=== PATIENT | male | born 1950 | race Caucasian/White ===

== ENCOUNTER 2018-01-12 17:02 | Observation (INO) | payer MEDICARE, SELFPAY ==
[2018-01-12] VITALS (9 sets, daily range): BP systolic 140–166; BP diastolic 70–108; PULSE 69–83; RESP 14–17; TEMP 36.6; O2SAT 96–99; BMI 26.8; BMI 26.0
--- NOTE | 2018-01-12 17:23 | RAD_ITS ---
STUDY: X-RAY CHEST REASON FOR EXAM: Male, 67 years old. Chest pain TECHNIQUE: A single frontal view of the chest was obtained. COMPARISON: January 25, 2015 FINDINGS: The lungs are adequately aerated. There are no focal airspace opacities. There is no demonstrated pleural abnormality. The cardiac silhouette is normal in size. The mediastinum and hilar regions are unremarkable. Normal visualized pulmonary arteries. Normal visualized aortic arch and descending thoracic aorta. There are diffuse degenerative changes of the visualized spine. There are degenerative changes in both shoulders. There is no demonstrated abnormality of the visualized upper abdomen. RAD/Chest 1 View IMPRESSION: No acute cardiopulmonary abnormalities or changes. Electronically Signed: Lyndsey Diop MD at 19:12 EDT Tel Direct: [phone], Service support ,
--- NOTE | 2018-01-12 17:23 | CT_ITS ---
CT Head or Brain W/O Contrast INDICATION: GLOBAL AMNESIA FOR 45 MIN COMPARISON: None TECHNIQUE: Noncontrast axial CT examination of the brain. Radiation dose optimization applied. FINDINGS: The ventricular system is normal in size and symmetric. The cortical sulci, sylvian fissures, and basal cisterns are well seen. The du-white matter junction is distinct. There is no evidence of acute intracranial hemorrhage, mass effect, midline shift, or abnormal extra-axial collection. The calvarium is intact and the visualized paranasal sinuses and mastoid air cells are clear. CT/Brain/Head without Contrast IMPRESSION: No evidence of acute intracranial abnormality by noncontrast CT. at 1845 Reported and signed by: Nayely Tucker MD Electronically Signed: Nayely Tucker MD at 17:44 EDT Tel , Service support ,
--- NOTE | 2018-01-12 17:23 | EKG12_ITS ---
Test Reason : NEURO S/SX Blood Pressure : / mmHG Vent. Rate : 072 BPM Atrial Rate : 072 BPM P-R Int : 172 ms QRS Dur : 100 ms QT Int : 392 ms P-R-T Axes : 013 000 027 degrees QTc Int : 429 ms Normal sinus rhythm Normal ECG Confirmed by TANYA RODRIGUEZ, SUZY ([id number]), multimedia editor JONAS GARCIA ([id number] on 01/15/2018 8:49:53 AM Referred By: JACKIE Confirmed By:SUZY MARTÍNEZ MD
--- NOTE | 2018-01-12 17:25 | ED.VISSUMM ---
- ER Visit Summary Date of Service: 01/12/18 Chief Complaint: Amnesia History of Present Illness: The patient is a 67 M presenting with amnesia. Patient has a history of previous transient global amnesia approximately 4 years ago. He states he had similar symptoms today. This lasted approximately 45 minutes. states that he had repetitive questions. No slurred speech. He states he has had a mild headache today. No numbness or weakness. No visual changes. No balance problems. No other complaints. Physical Examination: Vitals are stable. Patient is afebrile. Alert no acute distress. HEENT exam is unremarkable. Neck is supple. Lungs are clear and equal bilaterally. Heart is regular rate and rhythm. Abdomen is soft nontender nondistended. Extremities are unremarkable. Skin is warm and dry. No focal neurologic deficit. NIH 0 Remainder of exam is unremarkable. Emergency Department Course and Treatment: EKG is sinus rate is 72. CBC, chemistries unremarkable. INR is 1.0. Troponin is negative. CT shows no acute abnormality. Patient does have continuing repetitive questions but this is improved from previous. Will discuss with the hospitalist for admission. Disposition: Admission Impression: Transient global amnesia This note was generated with [employer] dictation software. It may contain incorrect words, spelling, and punctuation that were not noted in review of the chart prior to signing ED Disposition - Plan for ED Patient: Chief Complaint: Neuro S/Sx Referrals: Herrera Talamantes MD [NON-STAFF] -
[2018-01-12 17:41] LABS: Bedside Glucose 100 mg/dL (70-110)
[2018-01-12 17:42] LABS: Absolute Lymphocyte Count 1.84 X10^3/ul (0.83-4.51); Absolute Neutrophil Count 8.4 X10^3/uL (2.0-7.7); Basophil# 0.02 X10^3/uL; Basophil% 0.2 % (0-1); Eosinophils% 0.9 % (0-5); Hematocrit 44.3 % (40-54); Hemoglobin 14.9 g/dl (13.0-16.5); Lymphocyte # 1.84 X10^3/ul (4.0); Lymphocyte % 16.9 % (19-41); Mean Corp Hgb Conc 33.6 g/gl (32-36); Mean Corpuscular Hgb 29.6 pg (27.0-32.0); Mean Corpuscular Volume 88.1 fL (80-94); Mean Platelet Vol. 9.4 fl (6.2-12.0); Monocyte# 0.51 X10^3/uL; Monocyte% 4.7 % (0-10); Neutrophil # 8.42 X10^3/uL (2.7-7.7); Neutrophil % 77.1 % (47-70); Platelet Count 283 K/mm3 (150-450); RBC Distribution Width CV 12.8 % (11.6-14.6); RBC Distribution Width SD 40.9 fl (35.1-43.9); Red Blood Count 5.03 M/mm3 (4.6-6.2); White Blood Count 10.9 K/mm3 (4.4-11.0)
[2018-01-12 17:46] LABS: POSITIVE COUNT NO; POSITIVE DIFFERENTIAL NO; POSITIVE MORPHOLOGY NO
[2018-01-12 17:49] LABS: Partial Thromboplast Time 29.6 Seconds (24.1-36.2); Prothrombin Time (Protime)PT. 12.8 SECONDS (11.7-14.9)
[2018-01-12 18:10] LABS: Anion Gap 7 (5-15); BUN 21 mg/dL (7-18); BUN/Creat Ratio 20.4 RATIO (10-20); Calcium,Total 9.2 mg/dL (8.5-10.1); Chloride 104 mmol/L (98-107); Creatinine, Serum 1.03 mg/dL (0.70-1.30); EST Glomerular Filtration Rate 76 mL/min (>60); Est Glom Filt Rate - Afr Amer 93 mL/min (>60); Estimated Creatinine Clearance 69.59 ml/min; Glucose 100 mg/dL (74-106); Potassium 3.9 mmol/L (3.5-5.1); Sodium Level 139 mmol/L (136-145)
--- NOTE | 2018-01-12 19:09 | PCM.HP.STD ---
Problem List (1) Global amnesia Status: Acute (2) PAF (paroxysmal atrial fibrillation) Status: Chronic (3) Chronic back pain Status: Chronic Qualifiers: Back pain location: back pain in unspecified location Back pain laterality: unspecified Qualified Code(s): M54.9 - Dorsalgia, unspecified; G89.29 - Other chronic pain (4) S/P ablation of atrial fibrillation Status: Chronic (5) HLD (hyperlipidemia) Status: Chronic Qualifiers: Hyperlipidemia type: unspecified Qualified Code(s): E78.5 - Hyperlipidemia, unspecified History of Present Illness Date of Admission: 01/12/18 Chief Complaint: Global amnesia The patient is a 67 y/o M w/ PMHx: PAF s/p ablation x 3, HLD not on regimen, Chronic Back Pain who presents to the [facility] ED on 01/12/18 with onset at ~ 1:45 pm global amnesia which per history occurred ~ 6-8 years prior which lasted 24 hours with unremarkable evaluation per Neurology (Dr. Soria) at that time Dx Global Amnesia, noted to be more severe x ~ 45 minutes with serial repeat questioning and concern per patient with improvement upon ED presentation, but ongoing repeat questions but now awareness of this and request if he has already asked these questions. He also notes 6-8 month history of occasional L upper focal chest discomfort, reproducible, worse with palpation, notes sensation like a pulled muscle. He additionally notes mild L sided lateral headache, very mild, dull and resolved without photophobia or phonophobia noted. In the ED work-up included T 97.8, heart rate 72, BP initially 156/96, respiratory rate 17, 99% on room air--> follow-up BP 140/78, CBC with WBC 10.9, hemoglobin 14.9, platelet 283 with left shift, unremarkable coags, BMP with BUN/creatinine 21/1.03, troponin unremarkable, CT head with no acute findings, chest x-ray without acute findings. Past Medical History Past Medical History (Chronic Problems): Chronic Problems PAF (paroxysmal atrial fibrillation) (Chronic) Chronic back pain (Chronic) S/P ablation of atrial fibrillation (Chronic) HLD (hyperlipidemia) (Chronic) Allergies codeine Adverse Reaction (Verified 01/12/18 17:10) Other SHRIMP Adverse Reaction (Uncoded 01/12/18 17:10) Swelling Home Medications: Ambulatory Orders Medication Instructions Recorded Aspirin E.C. [Ecotrin] 81 mg PO DAILY@0800 06/15/14 Vits A,C,E/Lutein/Minerals 1 each PO DAILY 06/15/14 [Ocuvite with Lutein Tablet] Cyanocobalamin (Vitamin B-12) 01/12/18 [Vitamin B12] Multivitamin [Daily Multiple 1 tablet PO DAILY 01/12/18 Vitamin] Surgical History: - - Right lower extremity trauma with several surgeries and hardware, cardiac ablation ?3, tonsillectomy, right eye surgery with lower zygomatic arch plate, appendectomy, umbilical hernia repair. Psychiatric History: No pertinent psych hx Lives: Spouse/ Significant Other Smoking Status: Former smoker - Patient smoked for approximately 4 years and quit when he was 21 years old. 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 Drugs: None - *Family History Maternal History Items: - - Patient notes a maternal family history of heart disease. He notes a maternal grandfather and grandmother with history of heart disease, diabetes and cancer. Paternal History Items: Unknown Review of Systems Constitutional: Denies: Chills, Fever, Weight Change HEENT: Reports: Head Aches. Denies: Sinus Congestion, Sinus Drainage Cardiovascular: Reports: Chest Pain - Musculoskeletal.. Denies: Palpitations Respiratory: Denies: Cough, Shortness of breath at rest, Sputum production Gastrointestinal: Denies: Abdominal Pain, Nausea, Vomiting Genitourinary: Denies: Dysuria Musculoskeletal: Reports: Leg Pain. Denies: Joint Pain, Joint Tenderness Skin: Denies: Rash, Wounds Neurological: Reports: Confusion. Denies: Focal weakness, Numbness, Tingling Psychiatric: Denies: Anxiety, Depression, Homicidal Ideations, Suicidal Ideations Hematologic/ Lymphatic: Denies: Easy Bruising, Easy Bleeding VTE Information - Inpt Only VTE Present on Admission: No VTE Mechan Device Prophylaxis: SCD's VTE Pharm Prophylaxis ordered?: Yes Patient Problems: Active and Suspected Problems Global amnesia (Acute) Subjective: Seated upright in the emergency room bed, no acute distress, spouse and patient feel as though his amnesia is nearly resolved. Objective: Physical Examination: General: awake, alert, oriented x 3 including person, place, year, month and cooperative, seated upright in the ED bed in no apparent distress. Skin: normal color, turgor, no icterus, cyanosis. HEENT: AT/NC, EOMI, PERRLA, MMM, no carotid bruits or JVD noted. Lungs: CTA bilaterally, moderate effort, mild decrease BL bases, no rales, ronchi or wheezing. Heart: Regular rate and rhythm; no gallop, rub audible, reproducible focal region left upper chest discomfort. Abdomen: soft, NTTP, ND, normal BS, no HSM. Extremities: no cyanosis, clubbing, or edema. Neurological: patient awake, alert, oriented as noted; cognitive function per patient and spouse near baseline intact; pupils equally reactive to light and accomodation; cranial nerves II-XII grossly normal, moving all 4 extremities, no focal deficits, strength preserved, sensation intact, negative Babinski, finger to nose/heel to rosa appropriate/. Psychiatric: affect appears normal, no acute evidence of depressive or anxiety feelings. - Physical Exam Vital Signs Temp Pulse Resp BP Pulse Ox 97.8 F 80 14 145/70 H 98 01/12/18 17:03 01/12/18 17:30 01/12/18 17:30 01/12/18 17:30 01/12/18 17:30 Oxygen Delivery Method Room Air Weight: 181 lb 10.574 oz Body Mass Index (BMI) 26.8 Finger Stick Blood Glucose 100 Laboratory Tests Past 24 Hrs 01/12/18 01/12/18 01/12/18 17:30 17:30 17:30 WBC 10.9 RBC 5.03 Hgb 14.9 Hct 44.3 MCV 88.1 MCH 29.6 MCHC 33.6 RDW 12.8 RDW Differential 40.9 Plt Count 283 MPV 9.4 Immature Gran % (Auto) 0.200 Neut % (Auto) 77.1 H Lymph % (Auto) 16.9 L [place] % (Auto) 4.7 Eos % (Auto) 0.9 Baso % (Auto) 0.2 Absolute Neuts (auto) 8.4 H Absolute Lymphs (auto) 1.84 Total Counted Not Reportable PT 12.8 INR 1.0 APTT 29.6 Sodium 139 Potassium 3.9 Chloride 104 Carbon Dioxide 28.0 Anion Gap 7 BUN 21 H Creatinine 1.03 Estim Creat Clear Calc 69.59 Est GFR (MDRD) Af Amer 93 Est GFR (MDRD) Non-Af 76 BUN/Creatinine Ratio 20.4 H Glucose 100 Calcium 9.2 Troponin I < 0.02 POC Glucose 01/12/18 17:36 POC Glucose 100 Assessment/Plan Active and Suspected Problems Global amnesia (Acute) The patient is a 67 y/o M w/ PMHx: PAF s/p ablation x 3, HLD, Chronic Back Pain who presents to the [facility] ED on 01/12/18 with onset at ~ 1:45 pm global amnesia which per history occurred ~ 6-8 years prior, noted to be more severe x ~ 45 minutes with serial repeat questioning and concern per patient with improvement upon ED presentation, but ongoing repeat questions but now awareness of this and request if he has already asked these questions. (1) Transient Global Amnesia concerning for TIA/CVA: In the ED work-up included CBC w/ unremarkable, BMP w/ unremarkable, CT Head w/ no acute findings, CXR w/ no acute findings. Will admit to PCU, will obtain MRI Brain, MRA Head and Neck, ECHO, PT/OT/Speech/Nutrition evaluation per protocol. Will consult Neurology for evaluation. Will allow permissive HTN, maintain on asa with addition of plavix, add high dose statin w/ AM FLP, fall precautions. UA pending. Mag pending. (2) Paroxsymal atrial fibrillation s/p ablation: EKG in ED SR. patient status post cardiac ablation ?3, successful on the third try, no recurrent atrial fibrillation times approximately 10 years. Will maintain on telemetry, obtain cardiac enzyme serial set, obtain magnesium level, obtain ECHO, obtain TSH level as noted above. Given s/p ablation and maintained in sinus rhythm following w/ unclear CVA status will defer anticoagulation. (3) Elevated blood pressure without history of hypertension: Permissive. If appropriate add agent once appropriate timeline or MRI negative. Given history, running above goal. (4) Hyperlipidemia: Not on agent, add high dose statin, FLP in AM. (5) Chronic Back Pain: Fall precautions, position changes, PT/OT as noted, PRN tylenol. (6) Musculoskeletal L Focal Chest Pain: As noted, reproducible discomfort, focal, notes ongoing for several months, maintain on telemetry as noted, EKG SR without acute findings, trop normal, trend, mag pending, FLP pending. (7) DVT Prophylaxis: SCDs, lovenox. Code Visit OBSV E&M: 37227 Initial observation care L3
--- NOTE | 2018-01-12 19:22 | HP.PCM_ITS ---
Problem List (1) Global amnesia Status: Acute (2) PAF (paroxysmal atrial fibrillation) Status: Chronic (3) Chronic back pain Status: Chronic Qualifiers: Back pain location: back pain in unspecified location Back pain laterality : unspecified Qualified Code(s): M54.9 - Dorsalgia, unspecified; G89.29 - Other chronic pain (4) S/P ablation of atrial fibrillation Status: Chronic (5) HLD (hyperlipidemia) Status: Chronic Qualifiers: Hyperlipidemia type: unspecified Qualified Code(s): E78.5 - Hyperlipidemia , unspecified History of Present Illness Date of Admission: 01/12/18 Chief Complaint: Global amnesia The patient is a 67 y/o M w/ PMHx: PAF s/p ablation x 3, HLD not on regimen, Chronic Back Pain who presents to the [facility] ED on 01/12/18 with onset at ~ 1:45 pm global amnesia which per history occurred ~ 6-8 years prior which lasted 24 hours with unremarkable evaluation per Neurology (Dr. Soria) at that time Dx Global Amnesia, noted to be more severe x ~ 45 minutes with serial repeat questioning and concern per patient with improvement upon ED presentation, but ongoing repeat questions but now awareness of this and request if he has already asked these questions. He also notes 6-8 month history of occasional L upper focal chest discomfort, reproducible, worse with palpation, notes sensation like a pulled muscle. He additionally notes mild L sided lateral headache, very mild, dull and resolved without photophobia or phonophobia noted. In the ED work-up included T 97.8, heart rate 72, BP initially 156/96, respiratory rate 17, 99% on room air--> follow-up BP 140/78, CBC with WBC 10.9, hemoglobin 14.9, platelet 283 with left shift, unremarkable coags, BMP with BUN/ creatinine 21/1.03, troponin unremarkable, CT head with no acute findings, chest x-ray without acute findings. Past Medical History Past Medical History (Chronic Problems): Chronic Problems PAF (paroxysmal atrial fibrillation) (Chronic) Chronic back pain (Chronic) S/P ablation of atrial fibrillation (Chronic) HLD (hyperlipidemia) (Chronic) Allergies codeine Adverse Reaction (Verified 01/12/18 17:10) Other SHRIMP Adverse Reaction (Uncoded 01/12/18 17:10) Swelling Home Medications: Ambulatory Orders Medication Instructions Recorded Aspirin E.C. [Ecotrin] 81 mg PO DAILY@0800 06/15/14 Vits A,C,E/Lutein/Minerals 1 each PO DAILY 06/15/14 [Ocuvite with Lutein Tablet] Cyanocobalamin (Vitamin B-12) 01/12/18 [Vitamin B12] Multivitamin [Daily Multiple 1 tablet PO DAILY 01/12/18 Vitamin] Surgical History: - - Right lower extremity trauma with several surgeries and hardware, cardiac ablation ?3, tonsillectomy, right eye surgery with lower zygomatic arch plate, appendectomy, umbilical hernia repair. Psychiatric History: No pertinent psych hx Lives: Spouse/ Significant Other Smoking Status: Former smoker - Patient smoked for approximately 4 years and quit when he was 21 years old. 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 Drugs: None - *Family History Maternal History Items: - - Patient notes a maternal family history of heart disease. He notes a maternal grandfather and grandmother with history of heart disease, diabetes and cancer. Paternal History Items: Unknown Review of Systems Constitutional: Denies: Chills, Fever, Weight Change HEENT: Reports: Head Aches. Denies: Sinus Congestion, Sinus Drainage Cardiovascular: Reports: Chest Pain - Musculoskeletal.. Denies: Palpitations Respiratory: Denies: Cough, Shortness of breath at rest, Sputum production Gastrointestinal: Denies: Abdominal Pain, Nausea, Vomiting Genitourinary: Denies: Dysuria Musculoskeletal: Reports: Leg Pain. Denies: Joint Pain, Joint Tenderness Skin: Denies: Rash, Wounds Neurological: Reports: Confusion. Denies: Focal weakness, Numbness, Tingling Psychiatric: Denies: Anxiety, Depression, Homicidal Ideations, Suicidal Ideations Hematologic/ Lymphatic: Denies: Easy Bruising, Easy Bleeding VTE Information - Inpt Only VTE Present on Admission: No VTE Mechan Device Prophylaxis: SCD's VTE Pharm Prophylaxis ordered?: Yes Patient Problems: Active and Suspected Problems Global amnesia (Acute) Subjective: Seated upright in the emergency room bed, no acute distress, spouse and patient feel as though his amnesia is nearly resolved. Objective: Physical Examination: General: awake, alert, oriented x 3 including person, place, year, month and cooperative, seated upright in the ED bed in no apparent distress. Skin: normal color, turgor, no icterus, cyanosis. HEENT: AT/NC, EOMI, PERRLA, MMM, no carotid bruits or JVD noted. Lungs: CTA bilaterally, moderate effort, mild decrease BL bases, no rales, ronchi or wheezing. Heart: Regular rate and rhythm; no gallop, rub audible, reproducible focal region left upper chest discomfort. Abdomen: soft, NTTP, ND, normal BS, no HSM. Extremities: no cyanosis, clubbing, or edema. Neurological: patient awake, alert, oriented as noted; cognitive function per patient and spouse near baseline intact; pupils equally reactive to light and accomodation; cranial nerves II-XII grossly normal, moving all 4 extremities, no focal deficits, strength preserved, sensation intact, negative Babinski, finger to nose/heel to rosa appropriate/. Psychiatric: affect appears normal, no acute evidence of depressive or anxiety feelings. - Physical Exam Vital Signs Temp Pulse Resp BP Pulse Ox 97.8 F 80 14 145/70 H 98 01/12/18 17:03 01/12/18 17:30 01/12/18 17:30 01/12/18 17:30 01/12/18 17:30 Oxygen Delivery Method Room Air Weight: 181 lb 10.574 oz Body Mass Index (BMI) 26.8 Finger Stick Blood Glucose 100 Laboratory Tests Past 24 Hrs 01/12/18 01/12/18 01/12/18 17:30 17:30 17:30 WBC 10.9 RBC 5.03 Hgb 14.9 Hct 44.3 MCV 88.1 MCH 29.6 MCHC 33.6 RDW 12.8 RDW Differential 40.9 Plt Count 283 MPV 9.4 Immature Gran % (Auto) 0.200 Neut % (Auto) 77.1 H Lymph % (Auto) 16.9 L [place] % (Auto) 4.7 Eos % (Auto) 0.9 Baso % (Auto) 0.2 Absolute Neuts (auto) 8.4 H Absolute Lymphs (auto) 1.84 Total Counted Not Reportable PT 12.8 INR 1.0 APTT 29.6 Sodium 139 Potassium 3.9 Chloride 104 Carbon Dioxide 28.0 Anion Gap 7 BUN 21 H Creatinine 1.03 Estim Creat Clear Calc 69.59 Est GFR (MDRD) Af Amer 93 Est GFR (MDRD) Non-Af 76 BUN/Creatinine Ratio 20.4 H Glucose 100 Calcium 9.2 Troponin I < 0.02 POC Glucose 01/12/18 17:36 POC Glucose 100 Assessment/Plan Active and Suspected Problems Global amnesia (Acute) The patient is a 67 y/o M w/ PMHx: PAF s/p ablation x 3, HLD, Chronic Back Pain who presents to the [facility] ED on 01/12/18 with onset at ~ 1:45 pm global amnesia which per history occurred ~ 6-8 years prior, noted to be more severe x ~ 45 minutes with serial repeat questioning and concern per patient with improvement upon ED presentation, but ongoing repeat questions but now awareness of this and request if he has already asked these questions. (1) Transient Global Amnesia concerning for TIA/CVA: In the ED work-up included CBC w/ unremarkable, BMP w/ unremarkable, CT Head w/ no acute findings, CXR w/ no acute findings. Will admit to PCU, will obtain MRI Brain, MRA Head and Neck, ECHO, PT/OT/Speech/Nutrition evaluation per protocol. Will consult Neurology for evaluation. Will allow permissive HTN, maintain on asa with addition of plavix, add high dose statin w/ AM FLP, fall precautions. UA pending. Mag pending. (2) Paroxsymal atrial fibrillation s/p ablation: EKG in ED SR. patient status post cardiac ablation ?3, successful on the third try, no recurrent atrial fibrillation times approximately 10 years. Will maintain on telemetry, obtain cardiac enzyme serial set, obtain magnesium level, obtain ECHO, obtain TSH level as noted above. Given s/p ablation and maintained in sinus rhythm following w/ unclear CVA status will defer anticoagulation. (3) Elevated blood pressure without history of hypertension: Permissive. If appropriate add agent once appropriate timeline or MRI negative. Given history, running above goal. (4) Hyperlipidemia: Not on agent, add high dose statin, FLP in AM. (5) Chronic Back Pain: Fall precautions, position changes, PT/OT as noted, PRN tylenol. (6) Musculoskeletal L Focal Chest Pain: As noted, reproducible discomfort, focal , notes ongoing for several months, maintain on telemetry as noted, EKG SR without acute findings, trop normal, trend, mag pending, FLP pending. (7) DVT Prophylaxis: SCDs, lovenox. Code Visit OBSV E&M: 99972 Initial observation care L3
[2018-01-12] MEDS: 0.9% NaCl Peripheral Flush Adult/Peds IV (20:49)
[2018-01-12] MEDS: 0.9% Normal Saline 1,000 ML 100 ML IV (20:49)
[2018-01-12 20:59] LABS: Magnesium 2.5 mg/dL (1.6-2.6); Thyroid Stim Hormone (TSH) 1.27 uIU/mL (0.358-3.74)
[2018-01-12] MEDS: Enoxaparin 40 MG/0.4 ML Syringe SC (21:57)
[2018-01-12] MEDS: Atorvastatin Calcium 80 MG Tablet PO (21:57)
[2018-01-12 22:13] LABS: Bacteria 0 SEEN /hpf (None Seen); Mucous, Urine 0 SEEN /hpf (<or=2+); Squamous Epithelial Cells - UA 0 SEEN /hpf (0-5)
[2018-01-12 22:16] LABS: Color, Urine Yellow (Yellow); Glucose, Dipstick Normal (Normal); Ketone-Dipstick Negative (Negative); Leukocyte Esterase-Dipstick Negative /ul (Negative); Nitrite-Dipstick Negative (Negative); Occult Blood-Urine Negative /ul (Negative); Protein-Dipstick Negative (Negative); Urine Bilirubin Dipstick Negative (Negative); Urine Clarity Cloudy (Clear); Urine Urobilinogen Normal (Normal)
[2018-01-12 22:29] LABS: Amorphous Sediment 2+
[2018-01-12 22:30] LABS: Red Blood Cells-Urine 0-5 SEEN /hpf (0-5); White Blood Cells 0-5 SEEN /hpf (0-5)
[2018-01-13] VITALS (9 sets, daily range): BP systolic 87–120; BP diastolic 57–75; PULSE 60–84; RESP 15–20; TEMP 36.4–37.1; O2SAT 96–97; BMI 26.0
[2018-01-13 02:18] LABS: Hematocrit 40.6 % (40-54); Hemoglobin 13.9 g/dl (13.0-16.5); Mean Corp Hgb Conc 34.2 g/gl (32-36); Mean Corpuscular Hgb 30.2 pg (27.0-32.0); Mean Corpuscular Volume 88.3 fL (80-94); Mean Platelet Vol. 9.5 fl (6.2-12.0); Platelet Count 307 K/mm3 (150-450); RBC Distribution Width CV 12.8 % (11.6-14.6); RBC Distribution Width SD 40.9 fl (35.1-43.9); White Blood Count 8.2 K/mm3 (4.4-11.0)
[2018-01-13 02:19] LABS: Scan Indicated on CBC? Y/N NO
[2018-01-13 04:22] LABS: Anion Gap 10 (5-15); BUN 22 mg/dL (7-18); Calcium,Total 8.5 mg/dL (8.5-10.1); Chloride 104 mmol/L (98-107); Cholesterol 213 mg/dL (200); Creatinine, Serum 1.05 mg/dL (0.70-1.30); EST Glomerular Filtration Rate 75 mL/min (>60); Est Glom Filt Rate - Afr Amer 91 mL/min (>60); Estimated Creatinine Clearance 68.27 ml/min; Glucose 127 mg/dL (74-106); High Density Lipoprotein 43 mg/dL; Potassium 3.7 mmol/L (3.5-5.1); Sodium Level 141 mmol/L (136-145); Triglycerides 535 mg/dL
[2018-01-13] MEDS: 0.9% Normal Saline 1,000 ML 100 ML IV (06:15)
[2018-01-13] MEDS: Aspirin 81 MG TAB.CHEW PO (08:04)
[2018-01-13] MEDS: Clopidogrel Bisulfate 75 MG Tablet PO (08:04)
[2018-01-13] MEDS: Enoxaparin 40 MG/0.4 ML Syringe SC (08:04)
--- NOTE | 2018-01-13 10:38 | MRI_ITS ---
STUDY: MRI BRAIN WITHOUT CONTRAST REASON FOR EXAM: Male, 67 years old. Global amnesia. Now resolved TECHNIQUE: Standardized multiplanar fat and water weighted pulse sequences were obtained. COMPARISON: None. FINDINGS: The pituitary and pineal regions are normal. The corpus callosum and brainstem are normal The 7th and 8th nerve complexes are normal. Both cerebellopontine angles are clear. The cerebellar vermis and lobes are normal. The ventricles, basal cisterns and cortical sulci are normal with no midline shift and no intra or extra-axial hemorrhage or tumor mass. There is no acute infarction. The calvarium is intact. There are no skull swelling. The vessels at the base of the brain are normal. The orbits, paranasal sinuses and mastoid air cells are normal.. MRI/Brain without Contrast IMPRESSION: No acute findings in the brain. No intra or extra-axial tumor mass. Electronically Signed: Delgado Matias, at 12:10 EDT Tel , Service support ,
--- NOTE | 2018-01-13 10:38 | MRI_ITS ---
STUDY: MRA OF THE HEAD WITHOUT CONTRAST REASON FOR EXAM: Male, 67 years old. CVA. Global amnesia TECHNIQUE: 3-D [id number] (TOF) imaging was performed with MIPs. The study was performed unenhanced. COMPARISON: None. FINDINGS: Normal bilateral petrous carotid arteries. Normal right cavernous carotid artery with a normal supraclinoid bifurcation. Normal left cavernous carotid artery with a normal supraclinoid bifurcation. Normal right A1 segments of the anterior cerebral artery. Normal left A1 segments of the anterior cerebral artery. Normal intact anterior communicating artery (ACOM). Normal bilateral A2 segments of the anterior cerebral arteries. Normal right M1 and M2 segments of the middle cerebral arteries, with a normal M1 bifurcation. Normal left M1 and M2 segments of the middle cerebral arteries, with a normal M1 bifurcation. Normal right posterior communicating artery (PCOM). Normal left posterior communicating artery (PCOM). Normal bilateral vertebral arteries. Normal basilar artery with a normal basilar bifurcation. The visualized bilateral superior cerebellar (SCA) arteries are normal. Normal bilateral P1, P2 and visualized P3 segments of the posterior cerebral arteries. There is no demonstrated aneurysm of the [place]. There is no major vessel occlusion or hemodynamically significant stenosis. There is no demonstrated abnormality of the visualized brain. MRI/MRA Head ONLY without Contrast IMPRESSION: Normal MRA of the head Electronically Signed: Delgado Matias, at 12:23 EDT Tel , Service support ,
--- NOTE | 2018-01-13 10:38 | MRI_ITS ---
STUDY: MRA NECK WITHOUT CONTRAST REASON FOR EXAM: Male, 67 years old. CVA. Global amnesia TECHNIQUE: Source images were obtained, MIPs were performed. The study was performed unenhanced. COMPARISON: None. FINDINGS: RIGHT CAROTID ARTERIES: Normal right common carotid artery (CCA). About a 50% narrowing involving the right carotid bulb Normal origin of the right internal carotid (ICA) artery without a hemodynamically significant stenosis. Normal visualized cervical portion of the right internal carotid artery. Normal origin of the right external carotid artery (ECA). LEFT CAROTID ARTERIES: Normal left common carotid artery (CCA). There is a large plaque buildup in the left carotid bulb with about a 60-70% narrowing. the rest of the left internal carotid artery is normal.. . Normal origin of the left external carotid artery (ECA). VERTEBRAL ARTERIES: Normal antegrade flow within the bilateral vertebral artery without a hemodynamically significant stenosis. MRI/MRA Neck without Contrast IMPRESSION: About a 50% narrowing involving the right carotid bulb. A 60-70% narrowing of the left carotid bulb. Electronically Signed: Delgado Matias, at 12:22 EDT Tel , Service support ,
--- NOTE | 2018-01-13 13:43 | PCM.CONS.GEN ---
Problem List (1) Transient global amnesia Status: Acute Reason for Consult Date of Consultation: 01/13/18 Reason for Consultation: TGA History of Present Illness: The patient is a 67 year old CM with PMH HLD, Paroxysmal Afib s/p ablation (not on [id number] VASc score of 1), H/O TGA about 10 yrs ago admitted with amnesia. Per patient he was in the bathroom yesterday (01/12/18), after shower he forgot what he was doing, was not acting right, per it took about 30 mins or so for him to come back to normal, was repeating himself, but there was no witnessed seizures, tongue bite or urinary incontinence. Per patient he usually has low BP, but on admission yesterday had high BP with SBPs in the 150-160s. MRI brain done on admission was reported normal and MRA head/neck reported to show 50% stenosis of right ICA and 60-70% stenosis of left ICA. Per patient he takes ASA daily, denies any falls, does not use cane or walker to ambulate, does drive and does not need any assistance for his ADLs. He denies any ELLIOTT, visual disturbances, sensory loss or new onset focal motor weakness. [] Past Medical History Past Medical History (Chronic Problems): Chronic Problems PAF (paroxysmal atrial fibrillation) (Chronic) Chronic back pain (Chronic) S/P ablation of atrial fibrillation (Chronic) HLD (hyperlipidemia) (Chronic) Allergies codeine Adverse Reaction (Verified 01/12/18 17:10) Other SHRIMP Adverse Reaction (Uncoded 01/12/18 17:10) Swelling Home Medications: Ambulatory Orders Medication Instructions Recorded Aspirin E.C. [Ecotrin] 81 mg PO DAILY@0800 06/15/14 Vits A,C,E/Lutein/Minerals 1 each PO DAILY 06/15/14 [Ocuvite with Lutein Tablet] Cyanocobalamin (Vitamin B-12) 01/12/18 [Vitamin B12] Multivitamin [Daily Multiple 1 tablet PO DAILY 01/12/18 Vitamin] Surgical History: - - Right lower extremity trauma with several surgeries and hardware, cardiac ablation ?3, tonsillectomy, right eye surgery with lower zygomatic arch plate, appendectomy, umbilical hernia repair. 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 Drugs: None - *Family History Maternal History Items: - - Patient notes a maternal family history of heart disease. He notes a maternal grandfather and grandmother with history of heart disease, diabetes and cancer. Paternal History Items: Unknown Review of Systems Constitutional: Reports: - - complete ROS negative except as documented in HPI Patient Problems: Active and Suspected Problems Global amnesia (Acute) Transient global amnesia (Acute) - Physical Exam General: Alert HEENT: Atraumatic, Normocephalic Neck: Supple Lungs: Clear to auscultation Cardiovascular: Normal S1, Normal S2 Abdomen: Bowel Sounds Present Extremities: No cyanosis Skin: No rashes Musculoskeletal: No Tenderness to Palpation of Joints or Extremities Neurological: - - consious, alert, CN 2-12 grossly intact, Power 5/5 all 4 extremities, no sensory loss, no cerebellar signs, gait deferred, Reflexes + B/L B/S/T/K/A Psych/Mental Status: Normal Affect Vital Signs Temp Pulse Resp BP Pulse Ox 98.7 F 60 15 103/66 96 01/13/18 10:00 01/13/18 11:35 01/13/18 10:00 01/13/18 10:00 01/13/18 10:00 Oxygen Delivery Method Room Air Weight: 80 kg Body Mass Index (BMI) 26.0 Intake and Output for Last 24 Hours 01/11/18 01/12/18 01/13/18 23:59 23:59 23:59 Intake Total 2020 Balance 2020 Laboratory Tests Past 24 Hrs 01/12/18 01/12/18 01/13/18 21:40 21:50 02:03 WBC RBC Hgb Hct MCV MCH MCHC RDW RDW Differential Plt Count MPV Sodium 141 Potassium 3.7 Chloride 104 Carbon Dioxide 27.0 Anion Gap 10 BUN 22 H Creatinine 1.05 Estim Creat Clear Calc 68.27 Est GFR (MDRD) Af Amer 91 Est GFR (MDRD) Non-Af 75 BUN/Creatinine Ratio 21.0 H Glucose 127 H Calcium 8.5 Troponin I < 0.02 Triglycerides 535 H Cholesterol 213 H LDL Cholesterol TNP VLDL Cholesterol TNP HDL Cholesterol 43 Urine Color Yellow Urine Clarity Cloudy Urine pH 7.0 Ur Specific [place] 1.010 Urine Protein Negative Urine Glucose (UA) Normal Urine Ketones Negative Urine Occult Blood Negative Urine Nitrite Negative Urine Bilirubin Negative Urine Urobilinogen Normal Ur Leukocyte Esterase Negative Urine RBC 0-5 SEEN Urine WBC 0-5 SEEN Ur Squamous Epith Cells 0 SEEN Amorphous Sediment 2+ Urine Bacteria 0 SEEN Urine Mucus 0 SEEN 01/13/18 01/13/18 01/13/18 02:03 02:03 07:36 WBC 8.2 RBC 4.60 Hgb 13.9 Hct 40.6 MCV 88.3 MCH 30.2 MCHC 34.2 RDW 12.8 RDW Differential 40.9 Plt Count 307 MPV 9.5 Sodium Potassium Chloride Carbon Dioxide Anion Gap BUN Creatinine Estim Creat Clear Calc Est GFR (MDRD) Af Amer Est GFR (MDRD) Non-Af BUN/Creatinine Ratio Glucose Calcium Troponin I < 0.02 < 0.02 Triglycerides Cholesterol LDL Cholesterol VLDL Cholesterol HDL Cholesterol Urine Color Urine Clarity Urine pH Ur Specific [place] Urine Protein Urine Glucose (UA) Urine Ketones Urine Occult Blood Urine Nitrite Urine Bilirubin Urine Urobilinogen Ur Leukocyte Esterase Urine RBC Urine WBC Ur Squamous Epith Cells Amorphous Sediment Urine Bacteria Urine Mucus Assessment/Plan Active and Suspected Problems Global amnesia (Acute) Transient global amnesia (Acute) The patient is a 67 year old CM with PMH HLD, Paroxysmal Afib s/p ablation (not on [id number] VASc score of 1), H/O TGA about 10 yrs ago admitted with amnesia. Per patient he was in the bathroom yesterday (01/12/18), after shower he forgot what he was doing, was not acting right, per it took about 30 mins or so for him to come back to normal, was repeating himself, but there was no witnessed seizures, tongue bite or urinary incontinence. Per patient he usually has low BP, but on admission yesterday had high BP with SBPs in the 150-160s. MRI brain done on admission was reported normal and MRA head/neck reported to show 50% stenosis of right ICA and 60-70% stenosis of left ICA. Per patient he takes ASA daily, denies any falls, does not use cane or walker to ambulate, does drive and does not need any assistance for his ADLs. Impression Likely TGA Plan -MRI brain and MRA head/neck reviewed -On ASA 81 mg PO once daily -Can change Lipitor to 40 mg PO q hs -Recommend EEG -GI/DVT prophylaxis -F/U with Neurology as outpatient in 4 weeks -Fall precautions -Please call with questions if any -Thank you for allowing us to participate in patient's care and management I spent 60 minutes taking history, doing physical examination, reviewing medical records, coordinating care and counseling the patient. Code Visit Inpatient E&M: 16035 Init Hosp L3
--- NOTE | 2018-01-13 13:53 | CON.PCM_ITS ---
Problem List (1) Transient global amnesia Status: Acute Reason for Consult Date of Consultation: 01/13/18 Reason for Consultation: TGA History of Present Illness: The patient is a 67 year old CM with PMH HLD, Paroxysmal Afib s/p ablation (not on [id number] VASc score of 1), H/O TGA about 10 yrs ago admitted with amnesia. Per patient he was in the bathroom yesterday (01/12/18), after shower he forgot what he was doing, was not acting right, per it took about 30 mins or so for him to come back to normal, was repeating himself, but there was no witnessed seizures, tongue bite or urinary incontinence. Per patient he usually has low BP, but on admission yesterday had high BP with SBPs in the 150-160s. MRI brain done on admission was reported normal and MRA head/neck reported to show 50% stenosis of right ICA and 60-70% stenosis of left ICA. Per patient he takes ASA daily, denies any falls, does not use cane or walker to ambulate, does drive and does not need any assistance for his ADLs. He denies any ELLIOTT, visual disturbances, sensory loss or new onset focal motor weakness. [] Past Medical History Past Medical History (Chronic Problems): Chronic Problems PAF (paroxysmal atrial fibrillation) (Chronic) Chronic back pain (Chronic) S/P ablation of atrial fibrillation (Chronic) HLD (hyperlipidemia) (Chronic) Allergies codeine Adverse Reaction (Verified 01/12/18 17:10) Other SHRIMP Adverse Reaction (Uncoded 01/12/18 17:10) Swelling Home Medications: Ambulatory Orders Medication Instructions Recorded Aspirin E.C. [Ecotrin] 81 mg PO DAILY@0800 06/15/14 Vits A,C,E/Lutein/Minerals 1 each PO DAILY 06/15/14 [Ocuvite with Lutein Tablet] Cyanocobalamin (Vitamin B-12) 01/12/18 [Vitamin B12] Multivitamin [Daily Multiple 1 tablet PO DAILY 01/12/18 Vitamin] Surgical History: - - Right lower extremity trauma with several surgeries and hardware, cardiac ablation ?3, tonsillectomy, right eye surgery with lower zygomatic arch plate, appendectomy, umbilical hernia repair. 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 Drugs: None - *Family History Maternal History Items: - - Patient notes a maternal family history of heart disease. He notes a maternal grandfather and grandmother with history of heart disease, diabetes and cancer. Paternal History Items: Unknown Review of Systems Constitutional: Reports: - - complete ROS negative except as documented in HPI Patient Problems: Active and Suspected Problems Global amnesia (Acute) Transient global amnesia (Acute) - Physical Exam General: Alert HEENT: Atraumatic, Normocephalic Neck: Supple Lungs: Clear to auscultation Cardiovascular: Normal S1, Normal S2 Abdomen: Bowel Sounds Present Extremities: No cyanosis Skin: No rashes Musculoskeletal: No Tenderness to Palpation of Joints or Extremities Neurological: - - consious, alert, CN 2-12 grossly intact, Power 5/5 all 4 extremities, no sensory loss, no cerebellar signs, gait deferred, Reflexes + B/ L B/S/T/K/A Psych/Mental Status: Normal Affect Vital Signs Temp Pulse Resp BP Pulse Ox 98.7 F 60 15 103/66 96 01/13/18 10:00 01/13/18 11:35 01/13/18 10:00 01/13/18 10:00 01/13/18 10:00 Oxygen Delivery Method Room Air Weight: 80 kg Body Mass Index (BMI) 26.0 Intake and Output for Last 24 Hours 01/11/18 01/12/18 01/13/18 23:59 23:59 23:59 Intake Total 2020 Balance 2020 Laboratory Tests Past 24 Hrs 01/12/18 01/12/18 01/13/18 21:40 21:50 02:03 WBC RBC Hgb Hct MCV MCH MCHC RDW RDW Differential Plt Count MPV Sodium 141 Potassium 3.7 Chloride 104 Carbon Dioxide 27.0 Anion Gap 10 BUN 22 H Creatinine 1.05 Estim Creat Clear Calc 68.27 Est GFR (MDRD) Af Amer 91 Est GFR (MDRD) Non-Af 75 BUN/Creatinine Ratio 21.0 H Glucose 127 H Calcium 8.5 Troponin I < 0.02 Triglycerides 535 H Cholesterol 213 H LDL Cholesterol TNP VLDL Cholesterol TNP HDL Cholesterol 43 Urine Color Yellow Urine Clarity Cloudy Urine pH 7.0 Ur Specific [place] 1.010 Urine Protein Negative Urine Glucose (UA) Normal Urine Ketones Negative Urine Occult Blood Negative Urine Nitrite Negative Urine Bilirubin Negative Urine Urobilinogen Normal Ur Leukocyte Esterase Negative Urine RBC 0-5 SEEN Urine WBC 0-5 SEEN Ur Squamous Epith Cells 0 SEEN Amorphous Sediment 2+ Urine Bacteria 0 SEEN Urine Mucus 0 SEEN 01/13/18 01/13/18 01/13/18 02:03 02:03 07:36 WBC 8.2 RBC 4.60 Hgb 13.9 Hct 40.6 MCV 88.3 MCH 30.2 MCHC 34.2 RDW 12.8 RDW Differential 40.9 Plt Count 307 MPV 9.5 Sodium Potassium Chloride Carbon Dioxide Anion Gap BUN Creatinine Estim Creat Clear Calc Est GFR (MDRD) Af Amer Est GFR (MDRD) Non-Af BUN/Creatinine Ratio Glucose Calcium Troponin I < 0.02 < 0.02 Triglycerides Cholesterol LDL Cholesterol VLDL Cholesterol HDL Cholesterol Urine Color Urine Clarity Urine pH Ur Specific [place] Urine Protein Urine Glucose (UA) Urine Ketones Urine Occult Blood Urine Nitrite Urine Bilirubin Urine Urobilinogen Ur Leukocyte Esterase Urine RBC Urine WBC Ur Squamous Epith Cells Amorphous Sediment Urine Bacteria Urine Mucus Assessment/Plan Active and Suspected Problems Global amnesia (Acute) Transient global amnesia (Acute) The patient is a 67 year old CM with PMH HLD, Paroxysmal Afib s/p ablation (not on [id number] VASc score of 1), H/O TGA about 10 yrs ago admitted with amnesia. Per patient he was in the bathroom yesterday (01/12/18), after shower he forgot what he was doing, was not acting right, per it took about 30 mins or so for him to come back to normal, was repeating himself, but there was no witnessed seizures, tongue bite or urinary incontinence. Per patient he usually has low BP, but on admission yesterday had high BP with SBPs in the 150-160s. MRI brain done on admission was reported normal and MRA head/neck reported to show 50% stenosis of right ICA and 60-70% stenosis of left ICA. Per patient he takes ASA daily, denies any falls, does not use cane or walker to ambulate, does drive and does not need any assistance for his ADLs. Impression Likely TGA Plan -MRI brain and MRA head/neck reviewed -On ASA 81 mg PO once daily -Can change Lipitor to 40 mg PO q hs -Recommend EEG -GI/DVT prophylaxis -F/U with Neurology as outpatient in 4 weeks -Fall precautions -Please call with questions if any -Thank you for allowing us to participate in patient's care and management I spent 60 minutes taking history, doing physical examination, reviewing medical records, coordinating care and counseling the patient. Code Visit Inpatient E&M: 77212 Init Hosp L3
--- NOTE | 2018-01-13 14:16 | PCM.DC ---
- Discharge Diagnoses Current Active Problems: Current Active and Chronic Problems Global amnesia (Acute) PAF (paroxysmal atrial fibrillation) (Chronic) Chronic back pain (Chronic) S/P ablation of atrial fibrillation (Chronic) HLD (hyperlipidemia) (Chronic) Transient global amnesia (Acute) You will use the following diet at home:: Cardiac - low fat and low salt Your food should be the consistency of: Regular Your liquids should be the consistency of: Regular/Thin Discharge Activity: Return to Normal Activity, - - you should drink enough water to keep your urine a pale yellow Call your doctor if you observe: Fever of 101 or Higher, Shortness of breath, Dizziness, Fainting spells, Swelling in the ankles, Chest pain, - - Altered mental status, unilateral numbness or weakness, slurred speech, sudden loss of vision Instructions: Controlling Your Cholesterol, Symptoms of Stroke, What Is Ischemic Stroke? Additional Instructions: You have high fats in the blood and you are being given a prescription for a lipid lowering agent called Lipitor, also called Atorvastatin. You will take this once daily at bedtime. You should have a Lipid panel, Liver profile and a CPK done in 6 weeks.....your PCP can order theses tests for you. Dr. Dutton wants you to have a brain wave test as an outpatient to make sure that you are not having seizures. I am giving you a prescription. He would like to see you in the office in 4 weeks. You have narrowing of the arteries in the neck. These are called carotid arteries. There is less than 50% narrowing on the right and 60-70% narrowing on the left. There is not indication that you need to have any surgery at this time but, it is VERY IMPORTANT to control the fats in the blood and the BP to prevent the narrowing from getting worse. Continue to take 81 mg of aspirin daily. Allergies/Adverse Reactions: Allergies codeine Adverse Reaction (Verified 01/12/18 17:10) Other SHRIMP Adverse Reaction (Uncoded 01/12/18 17:10) Swelling Medications to take at Discharge Aspirin E.C. [Ecotrin] 81 mg PO DAILY@0800 06/15/14 Vits A,C,E/Lutein/Minerals [Ocuvite with Lutein Tablet] 1 each PO DAILY 06/15/14 Cyanocobalamin (Vitamin B-12) [Vitamin B12] 01/12/18 Multivitamin [Daily Multiple Vitamin] 1 tablet PO DAILY 01/12/18 Atorvastatin Calcium [Lipitor] 40 mg PO DAILY@2200 #30 tab 01/13/18 The following prescriptions were given: Atorvastatin Calcium [Lipitor] 40 mg PO DAILY@2200 #30 tab Primary Care Physician: Herrera Talamantes MD [NON-STAFF] - Please follow up with your Primary Care Physician in: 1-2 weeks Please Follow Up With: Angela Dutton MD When: 4 weeks Proposed Discharge Date: 01/13/18
--- NOTE | 2018-01-13 14:28 | PCM.DC.SUM ---
Discharge Date and Diagnosis Date of Admission: 01/12/18 Date of Discharge: 01/13/18 - Primary Discharge Diagnosis Active and Suspected Problems Transient global amnesia (Acute) - Secondary Discharge Diagnosis Chronic Problems Carotid arterial disease (Chronic) PAF (paroxysmal atrial fibrillation) (Chronic) Chronic back pain (Chronic) S/P ablation of atrial fibrillation (Chronic) HLD (hyperlipidemia) (Chronic) Hospital Course and Treatment Imaging Results: 01/13/18 10:38 Brain without Contrast [MRI] Stat MRA Head ONLY without Contrast [MRI] Stat MRA Neck without Contrast [MRI] Stat Clinical Impression(s) from Imaging Studies Brain CT 01/12/18 17:23 IMPRESSION: No evidence of acute intracranial abnormality by noncontrast CT. at 1845 Reported and signed by: Nayely Tucker MD Electronically Signed: Nayely Tucker MD at 17:44 EDT Tel , Service support , Chest X-Ray 01/12/18 17:23 IMPRESSION: No acute cardiopulmonary abnormalities or changes. Electronically Signed: Lyndsey Diop MD at 19:12 EDT Tel Direct: [phone], Service support , Brain MRI 01/13/18 10:38 IMPRESSION: No acute findings in the brain. No intra or extra-axial tumor mass. Electronically Signed: Delgado Matias, at 12:10 EDT Tel , Service support , Head MRA 01/13/18 10:38 IMPRESSION: Normal MRA of the head Electronically Signed: Delgado Matias, at 12:23 EDT Tel , Service support , Neck MRA 01/13/18 10:38 IMPRESSION: About a 50% narrowing involving the right carotid bulb. A 60-70% narrowing of the left carotid bulb. Electronically Signed: Delgado Matias, at 12:22 EDT Tel , Service support , Dr. Solo Dutton-neurology Operations: None Summary of Care Provided: The patient is a 67 year old M with a past medical history of paroxysmal atrial fibrillation (see status post ablation), chronic back pain and hyperlipidemia who presented to the emergency room at [facility] on 01/12/2018 with complaint of global amnesia. History was positive for global amnesia in the past approximately 6-8 years prior to this ER visit. He takes ASA 81 mg daily. He has refused medication for HLD in the past. He complained of a left side headache which was dull. Vital signs at presentation to the emergency room were temperature 97.8, heart rate 82, blood pressure 156/96, respiratory rate 17 and he was 98-99% saturated on room air. CBC was unremarkable. Troponin was less than 0.02. Electrolytes were within normal limits and the BUN was elevated at 21 with a creatinine of 1.03. He admitted to drinking less water recently then he has been accustomed to. CT brain showed no evidence of acute intracranial abnormality. MRI of the brain had no acute findings. MRA of the head was normal. MRA of the neck showed a 50% narrowing of the right internal carotid bulb and a 60-70% narrowing of the left carotid bulb. EKG showed normal sinus rhythm with no significant ST or T-wave changes. He was admitted to a monitored bed on PCU and neuro checks were ordered. Consultation was ordered with Dr. Dutton from neurology. Dr. Dutton recommended continued ASA and starting Lipitor 40 mg Q HS. He also recommended an EEG and since it could not be done on a Sunday a requisition for an OP EEG was given. I recommended that he increase his water intake and drink enough to keep the urine a pale yellow. He will follow up with Nato Hurd in the office in 4 weeks and will follow up in the office with Dr. Najera in the next 1-2 weeks. He will need a lipid profile, liver profile and a CPK in 6 weeks. We discussed the side effects of Lipitor with him and his and why it is important to take a lipid lowering agent to prevent progression of the carotid stenosis. This note was generated with [employer] dictation software. It may contain incorrect words, spelling, and punctuation that were not noted in checking the note before signing. Discharge Activity: Return to Normal Activity, - - you should drink enough water to keep your urine a pale yellow Call your doctor if you observe: Fever of 101 or Higher, Shortness of breath, Dizziness, Fainting spells, Swelling in the ankles, Chest pain, - - Altered mental status, unilateral numbness or weakness, slurred speech, sudden loss of vision Home Medications: Medications to take at Discharge Aspirin E.C. [Ecotrin] 81 mg PO DAILY@0800 06/15/14 Vits A,C,E/Lutein/Minerals [Ocuvite with Lutein Tablet] 1 each PO DAILY 06/15/14 Cyanocobalamin (Vitamin B-12) [Vitamin B12] 01/12/18 Multivitamin [Daily Multiple Vitamin] 1 tablet PO DAILY 01/12/18 Atorvastatin Calcium [Lipitor] 40 mg PO DAILY@2200 #30 tab 01/13/18 Following Prescrptions Were Given to Patient: Atorvastatin Calcium [Lipitor] 40 mg PO DAILY@2200 #30 tab Primary Care Physician: Herrera Talamantes MD [NON-STAFF] - Please follow up with your Primary Care Physician in: 1-2 weeks Please Follow Up With: Angela Dutton MD When: 4 weeks Please Follow Up With: Dania When: 1-2 weeks Patient Instructions: Controlling Your Cholesterol, Symptoms of Stroke, What Is Ischemic Stroke? Minutes spent on discharge:: 30 Patient Condition:: Good Medical Necessity - Tobacco Use Smoking Status: Former smoker Tobacco Use: Non-smoker Meaningful Use Info Meaningful Use Diagnoses (Choose all that apply): None applicable Code Visit OBSV E&M: 85130 Observation care discharge
== END 2018-01-13 14:26 | disposition home or self-care (01) ==
LOC: ED 19:15 → PCU 19:38
PROVIDERS: Admitting Provider Family Medicine; Emergency Provider Emergency Medicine; Family Provider Family Medicine; PCP Family Medicine; Visit Provider Internal Medicine
DX: G45.4 Transient global amnesia (principal); I48.0 Paroxysmal atrial fibrillation; E78.5 Hyperlipidemia, unspecified; G89.29 Other chronic pain; M54.9 Dorsalgia, unspecified; Z87.891 Personal history of nicotine dependence; R07.89 Other chest pain; R51 Headache; R03.0 Elevated blood-pressure reading, without diagnosis of hypertension; Z79.82 Long term (current) use of aspirin; R47.81 Slurred speech
CPT/HCPCS: 36415; 70450; 70544; 70547; 70551; 71045; 80048; 80061; 81001; 82962; 83735; 84443; 84484; 85025; 85027; 85610; 85730; 87086; 92523; 93005; 96360; 96361; 96372; 99218; 99283; J7030; J7040; A4216; G0378; G9168; G9169; G9170

== ENCOUNTER → 2018-02-11 07:13 | Outpatient (CLI) | payer MEDICARE, SELFPAY ==
--- NOTE | 2018-02-13 12:54 | EEG ---
- Electroencephalogram Date of service 02/11/18 History EEG is being done in this 67 yr M to rule out seizures EEG Description: This is an 18 channel EEG with 10-20 lead placement system. Bipolar montages, Referential and Circumferential montages were reviewed. Photic stimulation and Hyperventilation were performed. The posterior dominant background rhythm is 10 HZ synchronous, symmetric, reacting to eye opening and closing. Photo stimulation elicited normal driving response but no abnormal photoparoxysmal response, Hyperventilation did not elicit any abnormal photoparoxysmal response. Sleep was identified. There was no epileptiform discharges or electrographic seizures noted during this recording. Background rhythm was in the normal alpha frequency range EEG Interpretation This is a normal awake and asleep EEG. There is no epileptiform discharges or electrographic seizures noted during the record.
== END ==
PROVIDERS: Family Provider Family Medicine; PCP Family Medicine; Visit Provider Internal Medicine
DX: G45.4 Transient global amnesia (principal); R56.9 Unspecified convulsions
CPT/HCPCS: 95819

== ENCOUNTER → 2018-03-26 12:43 | Outpatient (CLI) | payer MEDICARE, SELFPAY ==
[2018-03-26 13:24] LABS: Cholesterol 180 mg/dL (200); High Density Lipoprotein 61 mg/dL; Triglycerides 132 mg/dL; Very Low Density Lipoprotein 26 mg/dL (5-40)
== END ==
PROVIDERS: Family Provider Family Medicine; PCP Family Medicine; Visit Provider Family Medicine
DX: E78.5 Hyperlipidemia, unspecified (principal)
CPT/HCPCS: 36415; 80061

== ENCOUNTER → 2018-12-09 11:47 | Outpatient (CLI) | payer OTHER, SELFPAY ==
[2018-12-09 15:19] LABS: Hemoglobin A1c 6.4 % (4.2-6.3)
[2018-12-09 15:35] LABS: Insulin 10.7 mU/L (2.6-37.6)
[2018-12-09 15:39] LABS: AST(SGOT) 29 U/L (15-37); Alanine Aminotransfer ALT/SGPT 45 U/L (16-61); Albumin, Serum 3.8 g/dL (3.2-5.0); Alkaline Phosphatase 67 U/L (45-117); Anion Gap 10 (5-15); BUN 19 mg/dL (7-18); BUN/Creat Ratio 18.6 RATIO (10-20); Calcium,Total 8.9 mg/dL (8.5-10.1); Chloride 106 mmol/L (98-107); Cholesterol 220 mg/dL (200); Creatinine, Serum 1.02 mg/dL (0.70-1.30); EST Glomerular Filtration Rate 77 mL/min (>60); Est Glom Filt Rate - Afr Amer 93 mL/min (>60); Globulin 3.7 g/dL (2.2-4.2); Glucose 98 mg/dL (74-106); High Density Lipoprotein 47 mg/dL; PSA,Total - Annual Screen 1.45 ng/mL (0.00-4.00); Potassium 4.1 mmol/L (3.5-5.1); Protein, Total 7.5 g/dL (6.4-8.2); Sodium Level 139 mmol/L (136-145); Thyroid Stim Hormone (TSH) 1.26 uIU/mL (0.358-3.74); Triglycerides 256 mg/dL; Very Low Density Lipoprotein 51 mg/dL (5-40)
== END ==
PROVIDERS: Family Provider Family Medicine; PCP Family Medicine; Visit Provider Family Medicine
DX: I77.9 Disorder of arteries and arterioles, unspecified (principal); E78.1 Pure hyperglyceridemia; R73.03 Prediabetes; Z12.5 Encounter for screening for malignant neoplasm of prostate
CPT/HCPCS: 36415; 80053; 80061; 83036; 83525; 84153; 84443; G0103

== ENCOUNTER → 2018-12-23 12:56 | Outpatient (CLI) | payer MEDICARE, SELFPAY ==
--- NOTE | 2018-12-23 12:59 | CDU_ITS ---
Reason For Study: Recheck Carotid Disease Rt. Velocities/BP Lt. Velocities/BP Prox CCA 87/22 cm/sec. Prox CCA 126/33 cm/sec. Mid CCA 76/22 cm/sec. Mid CCA 117/31 cm/sec. Dist CCA 99/28 cm/sec. Dist CCA 99/32 cm/sec. Prox ICA 93/26 cm/sec. Prox ICA 93/33 cm/sec. Mid ICA 82/29 cm/sec. Mid ICA 90/32 cm/sec. Dist ICA 83/28 cm/sec. Dist ICA 73/32 cm/sec. Rt. ICA/CCA = 1.22. Lt. ICA/CCA = 0.79. Prox ECA 109/18 cm/sec. Prox ECA 99/21 cm/sec. Rt. Vert. 40/14 cm/sec. Lt. Vert. 57/20 cm/sec. Right Extracranial There is homogeneous, smooth atherosclerotic plaque noted in the right common carotid artery. There is homogeneous, smooth atherosclerotic plaque noted in the right internal carotid artery. There is intimal thickening but no significant atherosclerotic plaque noted in the right external carotid artery. Antegrade flow is noted in the right vertebral artery. Left Extracranial There is heterogeneous, smooth atherosclerotic plaque noted in the left common carotid artery. There is homogeneous, smooth atherosclerotic plaque noted in the left internal carotid artery. There is intimal thickening but no significant atherosclerotic plaque noted in the left external carotid artery. Antegrade flow is noted in the left vertebral artery. Procedure Carotid Duplex 24240. Exam performed in department. Interpretation Summary Mild (<50%) stenosis right extracranial internal carotid. Mild (<50%) stenosis left extracranial internal carotid. Flow within the vertebral arteries is antegrade bilaterally. Ordering Physician: Carrillo Najera Referring Physician: Carrillo Najera Performed By: Piedad Pena, RDCS, RVT
== END ==
PROVIDERS: Family Provider Family Medicine; PCP Family Medicine; Referring Provider Family Medicine; Visit Provider Family Medicine
DX: I65.23 Occlusion and stenosis of bilateral carotid arteries (principal); I77.9 Disorder of arteries and arterioles, unspecified
CPT/HCPCS: 93880

== ENCOUNTER → 2019-05-14 | Outpatient (CLI) | payer MEDICARE, SELFPAY ==
--- NOTE | 2019-05-14 10:30 | LES_PTH ---
PATIENT: DESTINY BALDERAS LOC: [facility] U#:[id number] AGE/SX: 68/M ROOM: RE05/14/[address]: Dr. Carrillo Najera DO : 1950 BED: DIS: 05/14/2019 SPEC #: [id number] RECD: 05/14/19 15:27 STATUS: KATERIN IVA #: [id number] TRAN: 05/14/19 10:[address]: Carrillo Najera DEPT: SURGICAL PATHOLOGY RECD BY: Mariano Mitchell Tissues: Skin of arm Procedures: Surgery Specimen Level IV HEADER OPERATION: Left arm excision PRE-OP DIAGNOSIS: Suspect basal cell TISSUE SUBMITTED: Left upper arm lesion MICROSCOPIC DIAGNOSIS Left upper arm lesion, excisional biopsy: Inflamed verrucous keratosis with moderate to severe atypia, completely excised (0.5 cm in greatest dimension). See comment. SJ:venkat 05/16/19 SJ:venkat 05/21/19 COMMENT The atypia focally approaches close to squamous cell carcinoma in situ. Case has been reviewed in consultation with Dr. Aguirre who concurs with the above diagnosis. IDC:AM MICROSCOPIC DESCRIPTION Slides are reviewed. GROSS DESCRIPTION Received is one container labeled with the patient's name and not further designated. The specimen consists of a piece of umanzor-white skin ellipse measuring 1.5 x 0.6 cm and up to 0.3 cm in thickness. The skin surface reveals a raised, umanzor lesion measuring 0.7 x 0.5 cm. The specimen is inked, serially sectioned and submitted entirely in one cassette. / SJ:rg 05/15/19 TC:5 CPT: 24686
--- NOTE | 2019-05-14 10:30 | LES_PTH ---
PATIENT: DESTINY BALDERAS LOC: [facility] U#:[id number] AGE/SX: 68/M ROOM: RE05/14/[address]: Dr. Carrillo Najera DO : 1950 BED: DIS: 05/14/2019 SPEC #: [id number] RECD: 05/14/19 15:27 STATUS: KATERIN IVA #: [id number] TRAN: 05/14/19 10:[address]: Carrillo Najera DEPT: SURGICAL PATHOLOGY RECD BY: Mariano Mitchell Tissues: Skin of arm Procedures: Surgery Specimen Level IV HEADER OPERATION: Left arm excision PRE-OP DIAGNOSIS: Suspect basal cell TISSUE SUBMITTED: Left upper arm lesion MICROSCOPIC DIAGNOSIS Left upper arm lesion, excisional biopsy: Inflamed verrucous keratosis. Negative for malignancy. SJ:venkat 05/16/19 MICROSCOPIC DESCRIPTION Slides are reviewed. GROSS DESCRIPTION Received is one container labeled with the patient's name and not further designated. The specimen consists of a piece of umanzor-white skin ellipse measuring 1.5 x 0.6 cm and up to 0.3 cm in thickness. The skin surface reveals a raised, umanzor lesion measuring 0.7 x 0.5 cm. The specimen is inked, serially sectioned and submitted entirely in one cassette. / SJ:rg 05/15/19 TC:5 CPT: 85528
[2019-05-14 12:50] LABS: Cholesterol 235 mg/dL (200); High Density Lipoprotein 51 mg/dL; Triglycerides 188 mg/dL; Very Low Density Lipoprotein 38 mg/dL (5-40)
[2019-05-14 13:01] LABS: Hemoglobin A1c 6.2 % (4.2-6.3)
== END | disposition home or self-care (01) ==
PROVIDERS: Family Provider Family Medicine; PCP Family Medicine; Visit Provider Family Medicine
DX: E78.1 Pure hyperglyceridemia (principal); R73.03 Prediabetes; L82.0 Inflamed seborrheic keratosis
CPT/HCPCS: 36415; 80061; 83036; 88305

== ENCOUNTER → 2019-05-22 11:32 | Outpatient (CLI) | payer MEDICARE, SELFPAY ==
--- NOTE | 2019-05-22 10:00 | LES_PTH ---
PATIENT: DESTINY BALDERAS LOC: [facility] U#:[id number] AGE/SX: 75/M ROOM: RE05/22/[address]: Dr. Carrillo Najera, : 1950 BED: DIS: SPEC #: [id number] RECD: 05/22/19 15:39 STATUS: KATERIN IVA #: [id number] TRAN: 05/22/19 10:[address]: Carrillo Najera DEPT: SURGICAL PATHOLOGY RECD BY: Mariano Mitchell Tissues: Skin of neck, NOS Procedures: Surgery Specimen Level IV HEADER OPERATION: Excision right posterior neck PRE-OP DIAGNOSIS: History skin cancer; basal cell vs hypertrophic scar TISSUE SUBMITTED: Excision right posterior neck MICROSCOPIC DIAGNOSIS Right posterior neck lesion, excisional biopsy: Basal cell carcinoma, nodular type, focally present at the one peripheral margin of the specimen (0.5 cm in greatest dimension). Solar elastosis. See comment. EDGARDO:venkat 05/26/19 COMMENT Correlation with clinical findings and appropriate follow up are necessary. Please make reference to previous specimen ([id number]) left upper arm lesion, excisional biopsy with diagnosis of inflamed verrucous keratosis with moderate to severe atypia, completely excised. MICROSCOPIC DESCRIPTION Slides are reviewed. GROSS DESCRIPTION Received is one container labeled with the patient's name and not further designated. The specimen consists of a piece of umanzor-brown skin measuring 1.2 x 0.5 cm and up to 0.3 cm in thickness. The specimen is inked, serially sectioned and submitted entirely in one cassette. / SJ:rg 05/23/19 TC:0 CPT: 96609
== END ==
PROVIDERS: Family Provider Family Medicine; PCP Family Medicine; Visit Provider Family Medicine
DX: C44.41 Basal cell carcinoma of skin of scalp and neck (principal); L57.8 Other skin changes due to chronic exposure to nonionizing radiation
CPT/HCPCS: 88305

== ENCOUNTER 2019-07-29 13:21 | Emergency (ER) | payer MEDICARE, SELFPAY ==
[2019-07-29 13:22] VITALS: BP 123/76; PULSE 69; RESP 18; TEMP 36.6; O2SAT 96; BMI 27.2
[2019-07-29 13:35] VITALS: BP 139/91
--- NOTE | 2019-07-29 14:08 | CT_ITS ---
STUDY: CT BRAIN WITHOUT CONTRAST REASON FOR EXAM: Male, 69 years old. Left orbital pain. Transient vertigo. Headaches. RADIATION DOSAGE (If Supplied By Facility): CTDIvol = ( 60.81 ) mGy, DLP = ( 1112.69 ) mGycm TECHNIQUE: Transaxial CT imaging of the brain was performed without administration of intravenous contrast material. Individualized dose optimization techniques were used for this CT. COMPARISON: Comparison is made with prior examination dated January 12, 2018. FINDINGS: Normal soft tissue structures. Normal calvarium. There is mild cerebral atrophy with widening of the extra-axial spaces and ventricular dilatation. Normal white matter tracts of the cerebral hemispheres. Normal basal ganglia and thalami. Normal brainstem. Normal cerebellum. There is no intracranial hemorrhage. There are no findings of an acute ischemic infarction. Minimal mucosal thickening along the lateral wall of the right maxillary sinus. CT/Brain/Head without Contrast IMPRESSION: Chronic involutional changes of the brain. Minimal mucosal thickening of the right maxillary sinus. Electronically Signed: Inderjit Lentz, at 15:08 EDT , Service support ,
--- NOTE | 2019-07-29 15:14 | ED.DCSUM_ITS ---
History of Present Illness Chief Complaint: Weakness Narrative: Patient presenting for evaluation secondary to a headache, dizziness. Patient states that over the course of the last 3 days he has been dealing with intermittent shooting pains. He states that these pains are located behind his left eye, and tend to be associated with change in position. Patient states that he has had a mild amount of blurred vision associated with this, but does not state that it specifically involves the left eye, and there is no diplopia. No facial skin changes. Patient states that today when he woke up he was having a significant episode of vertigo. He did describe this as a room spinning type sensation that was worse with change in position. It was not associate with any sort of speech difficulty numbness or weakness. Patient reports that he went to his primary care physician today who diagnosed him as having benign peripheral paroxysmal vertigo, and the patient was discharged. Patient states however that he is having persistent worsening of this shooting pain behind his left eye and he was concerned and presented to the emergency department. He denies any neck pain. He denies any recent head injuries neck manipulations or visits to the chiropractor. Review of systems otherwise negative. Past Medical History - Allergies and Home Meds Allergies/Adverse Reactions: Allergies codeine Adverse Reaction (Verified 07/29/19 13:25) Other SHRIMP Adverse Reaction (Uncoded 07/29/19 13:25) Swelling Primary Care Physician: Carrillo Najera DO [Primary Care Provider] - Past Medical History: - - Paroxysmal A. fib status post ablation Surgical History: - - Right lower extremity trauma with several surgeries and hardware, cardiac ablation ?3, tonsillectomy, right eye surgery with lower zygomatic arch plate, appendectomy, umbilical hernia repair. Smoking Status: Former smoker - Family History Maternal Family History: Reports: - - Patient notes a maternal family history of heart disease. He notes a maternal grandfather and grandmother with history of heart disease, diabetes and cancer. Paternal Family History: Reports: Unknown Review of Systems Eyes: Reports: Blurred Vision - bilaterally Neurological: Reports: Headache, - - Dizziness Physical Exam Vital Signs/Narrative: Vital Signs Temp Pulse Resp BP Pulse Ox 07/29/19 13:35 139/91 H 07/29/19 13:22 98 F 69 18 123/76 H 96 Inital Vital Signs reviewed: Yes General: Well nourished, Well developed, No Acute Distress Head: Normocephalic, Atraumatic. Negative for: Tenderness - No temporal artery tenderness Eyes: Perrl, EOMI, - - No nystagmus either resting or inducible. Normal for endoscopy. ENT: Moist mucous membranes, No rhinorrhea, TM's clear, - - No evidence of facial rash or vesicular rash Neck: Supple, Nontender, - - No carotid bruits Cardiovascular: Regular rate, Regular rhythm, No murmurs Respiratory: No distress, CTA bilaterally, Chest nontender Abdomen: Soft, Nontender, Nondistended, Normal bowel sounds Back: Nontender, Normal Inspection Extremities: Nontender, No edema Skin: Normal color, No rash Neurological: Alert, Oriented x3, Cranial nerves II-XII grossly intact, Normal Strength, Normal Sensation, Normal Gait, - - Normal cerebellar testing Psychological: Normal affect, Normal Mood Diagnostic/Tx/Re-eval - Medical Decision Making Patient presented secondary to a headache. CT imaging was found to be negative. Patient has a unilateral headache, and had some onset of vertigo today. He has a completely normal neurologic exam. He has no signs or symptoms that would be concerning for subarachnoid hemorrhage or sentinel bleed, carotid dissection or vertebral insufficiency, facial zoster or Montevallo Manuel syndrome, temporal arteritis, or other serious pathology that would require admission. I discussed the patient's normal CT scan with his primary care physician who will follow the patient up as an outpatient. Patient was given signs and symptoms for which to return which she voiced understanding of. Patient was discharged in stable condition. ED Disposition - Plan for ED Patient: Disposition: Home or Assisted Living Diagnosis: Headache Instructions: HEADACHE, Unspecified Referrals: Carrillo Najera DO [Primary Care Provider] - 3-5 Days if not improving
[2019-07-29 15:28] VITALS: BP 145/96; PULSE 64; RESP 17; O2SAT 98
== END 2019-07-29 15:44 | disposition home or self-care (01) ==
PROVIDERS: Emergency Provider Emergency Medicine; Family Provider Family Medicine; PCP Family Medicine
DX: R51 Headache (principal); Z87.891 Personal history of nicotine dependence; I48.0 Paroxysmal atrial fibrillation
CPT/HCPCS: 70450; 99283

== ENCOUNTER → 2019-11-21 09:45 | Outpatient (CLI) | payer MEDICARE, SELFPAY ==
[2019-11-21 12:26] LABS: Basophil# 0.03 X10^3/uL; Basophil% 0.4 % (0-1); Eosinophil# 0.16 X10^3/uL; Eosinophils% 2.3 % (0-5); Hematocrit 47.4 % (40-54); Hemoglobin 15.3 g/dL (13.0-16.5); Lymphocyte % 29.3 % (19-41); Mean Corp Hgb Conc 32.3 g/dL (32-36); Mean Corpuscular Hgb 29.1 pg (27.0-32.0); Mean Corpuscular Volume 90.3 fL (80-94); Mean Platelet Vol. 10.1 fl (6.2-12.0); Monocyte# 0.64 X10^3/uL; Monocyte% 9.4 % (0-10); NRBC Flagged by Analyzer 0 % (0-5); Neutrophil # 3.99 X10^3/uL (2.7-7.7); Neutrophil % 58.5 % (47-70); Platelet Count 325 K/mm3 (150-450); RBC Distribution Width CV 12.6 % (11.6-14.6); RBC Distribution Width SD 41.7 fl (35.1-43.9); Red Blood Count 5.25 M/mm3 (4.6-6.2); White Blood Count 6.8 K/mm3 (4.4-11.0)
[2019-11-21 12:36] LABS: AST(SGOT) 20 U/L (15-37); Alanine Aminotransfer ALT/SGPT 35 U/L (16-61); Albumin, Serum 3.9 g/dL (3.2-5.0); Alkaline Phosphatase 71 U/L (45-117); Anion Gap 6 (5-15); BUN 17 mg/dL (7-18); BUN/Creat Ratio 15.5 RATIO (10-20); Chloride 106 mmol/L (98-107); Cholesterol 215 mg/dL (200); EST Glomerular Filtration Rate 71 mL/min (>60); Est Glom Filt Rate - Afr Amer 85 mL/min (>60); Globulin 3.8 g/dL (2.2-4.2); Glucose 114 mg/dL (74-106); High Density Lipoprotein 54 mg/dL; Potassium 3.8 mmol/L (3.5-5.1); Protein, Total 7.7 g/dL (6.4-8.2); Sodium Level 139 mmol/L (136-145); Triglycerides 151 mg/dL; Very Low Density Lipoprotein 30 mg/dL (5-40)
== END ==
PROVIDERS: Family Provider Family Medicine; PCP Family Medicine; Visit Provider Family Medicine
DX: E78.1 Pure hyperglyceridemia (principal); E78.5 Hyperlipidemia, unspecified; R73.03 Prediabetes; Z51.81 Encounter for therapeutic drug level monitoring
CPT/HCPCS: 36415; 80053; 80061; 83036; 85025

== ENCOUNTER → 2020-10-25 | Outpatient (CLI) | payer MEDICARE, SELFPAY ==
--- NOTE | 2020-10-25 | IMM_PTH ---
PATIENT: DESTINY BALDERAS LOC: [facility] U#:[id number] AGE/SX: 70/M ROOM: RE10/25/[address]: Dr. Carrillo Najera DO : 1950 BED: DIS: 10/25/2020 SPEC #: [id number] RECD: 10/27/20 13:46 STATUS: KATERIN IVA #: [id number] TRAN: 10/25/20 00:[address]: Carrillo Najera DEPT: IMMUNOHISTOCHEMISTRY RECD BY: Rena Jain Tissues: Skin of back, NOS Procedures: Vimentin (add) Pankeratin (add) MELAN-A (add) S100 (initial) PHYSICIAN & INSTITUTION [place] [id number] SPECIMEN INFORMATION: Tissue Source: 4 mm punch biopsy back Clinical Info: Rule out melanoma Specimen Number: [id number] CPT code: 11991, 77309 x3 METHODOLOGY: Deparaffinized sections of prefer/formalin-fixed tissue or PAP/DQ stained slides are incubated with monoclonal/polyclonal antibodies/oligonucleotide probes. Localization is made via biotin free immunoperoxidase method. Appropriate controls are performed and reacted as expected. Results on target cell population are indicated in the following table: RESULTS: ANTIBODY / CLONE RESULT S-100 (4C4.9) negative Vimentin (V9) negative Melan A (A103) negative AE1-3 (AE1/AE3/PCK26) negative These tests were developed and their performance characteristics determined by [facility]. They may not have been cleared or approved by the U.S. Food and Drug Administration. The FDA has determined that such clearance or approval is not necessary. The above immunohistochemical/dualISH markers are ordered and reviewed by the Pathologist. INTERPRETATION: Skin lesion of back, punch biopsy: No evidence of melanoma. AM:venkat 10/28/2020
--- NOTE | 2020-10-25 | LES_PTH ---
PATIENT: DESTINY BALDERAS LOC: [facility] U#:[id number] AGE/SX: 70/M ROOM: RE10/25/[address]: Dr. Carrillo Najera, : 1950 BED: DIS: 10/25/2020 SPEC #: [id number] RECD: 10/25/20 15:25 STATUS: KATERIN IVA #: [id number] TRAN: 10/25/20 00:[address]: Carrillo Najera DEPT: SURGICAL PATHOLOGY RECD BY: Margarito Mckenzie Tissues: Skin of back, NOS Procedures: Surgery Specimen Level IV HEADER OPERATION: Punch biopsy back PRE-OP DIAGNOSIS: Rule out melanoma TISSUE SUBMITTED: 4 mm punch biopsy back MICROSCOPIC DIAGNOSIS Skin lesion of back, punch biopsy: Consistent with solar lentigo. No evidence of malignancy. See comment. AM:venkat 10/27/2020 COMMENT Immunohistochemistry ([id number]) supports the above diagnosis. MICROSCOPIC DESCRIPTION Slides are reviewed. GROSS DESCRIPTION Received is one container labeled with the patient's name and not further designated. The specimen consists of a punch biopsy of umanzor-white skin measuring 0.4 cm in diameter and 0.2 cm in length. The entire specimen is submitted in one cassette. / SJ:rg 10/26/20 TC:5 [facility]: [id number]
== END | disposition home or self-care (01) ==
LOC: LABSPEC 11:28
PROVIDERS: PCP Family Medicine; Visit Provider Family Medicine
DX: L98.9 Disorder of the skin and subcutaneous tissue, unspecified (principal)
CPT/HCPCS: 88305; 88341; 88342

== ENCOUNTER → 2021-02-04 09:55 | Outpatient (CLI) | payer MEDICARE, SELFPAY ==
--- NOTE | 2021-02-04 09:59 | CDU_ITS ---
Reason For Study: Carotid Atherosclerosis Rt. Velocities/BP Lt. Velocities/BP Prox CCA 85/20 cm/sec. Prox CCA 116/34 cm/sec. Mid CCA 101/28 cm/sec. Mid CCA 104/30 cm/sec. Dist CCA 111/34 cm/sec. Dist CCA 106/39 cm/sec. Prox ICA 107/21 cm/sec. Prox ICA 109/30 cm/sec. Mid ICA 91/27 cm/sec. Mid ICA 166/63 cm/sec. Dist ICA 68/25 cm/sec. Dist ICA 79/28 cm/sec. Rt. ICA/CCA = 1.1. Lt. ICA/CCA = 1.60. Prox ECA 181/39 cm/sec. Prox ECA 164/30 cm/sec. Rt. Vert. 57/18 cm/sec. Lt. Vert. 48/20 cm/sec. Right Extracranial There is homogeneous, smooth atherosclerotic plaque noted in the right common carotid artery. There is homogeneous, irregular atherosclerotic plaque noted in the right internal carotid artery. There is intimal thickening but no significant atherosclerotic plaque noted in the right external carotid artery. Antegrade flow is noted in the right vertebral artery. Left Extracranial There is heterogeneous, smooth atherosclerotic plaque noted in the left common carotid artery. There is heterogeneous, smooth atherosclerotic plaque noted in the left internal carotid artery. There is intimal thickening but no significant atherosclerotic plaque noted in the left external carotid artery. Antegrade flow is noted in the left vertebral artery. Procedure Carotid Duplex 66828. Exam performed in department. VL/Carotid Duplex Ultrasound Interpretation Summary Slightly irregular plaque of the proximal right internal carotid artery with le ss than 50% stenosis Less than 50% stenosis right external carotid artery Smooth plaque in the proximal left internal carotid artery with 50 to 69% steno sis. Less than 50% stenosis left external carotid artery Patent antegrade vertebrals bilaterally Ordering Physician: Carrillo Najera Referring Physician: Carrillo Najera Performed By: Piedad Pena, JOVANI, RVT
[2021-02-04 11:13] LABS: Absolute Lymphocyte Count 1.98 X10^3/uL (0.83-4.51); Absolute Neutrophil Count 3.2 X10^3/uL (2.0-7.7); Basophil# 0.04 X10^3/uL; Basophil% 0.7 % (0-1); Eosinophil# 0.24 X10^3/uL; Eosinophils% 3.9 % (0-5); Hematocrit 44.7 % (40-54); Hemoglobin 14.7 g/dL (13.0-16.5); Lymphocyte # 1.98 X10^3/ul (0.83-4.51); Lymphocyte % 32.5 % (19-41); Mean Corp Hgb Conc 32.9 g/dL (32-36); Mean Corpuscular Hgb 30.1 pg (27.0-32.0); Mean Corpuscular Volume 91.4 fL (80-94); Mean Platelet Vol. 9.6 fl (6.2-12.0); Monocyte% 9.8 % (0-10); NRBC Flagged by Analyzer 0 % (0-5); Neutrophil # 3.22 X10^3/uL (2.7-7.7); Neutrophil % 52.8 % (47-70); Platelet Count 299 K/mm3 (150-450); RBC Distribution Width CV 12.6 % (11.6-14.6); RBC Distribution Width SD 42.5 fl (35.1-43.9); Red Blood Count 4.89 M/mm3 (4.6-6.2); White Blood Count 6.1 K/mm3 (4.4-11.0)
[2021-02-04 11:37] LABS: Hemoglobin A1c 5.9 % (3.8-5.6)
[2021-02-04 11:52] LABS: AST(SGOT) 20 U/L (15-37); Alanine Aminotransfer ALT/SGPT 26 U/L (16-61); Albumin, Serum 3.6 g/dL (3.2-5.0); Alkaline Phosphatase 75 U/L (45-117); Anion Gap 4 (5-15); BUN 19 mg/dL (7-18); Calcium,Total 8.6 mg/dL (8.5-10.1); Chloride 104 mmol/L (98-107); Cholesterol 241 mg/dL (200); Creatinine, Serum 0.95 mg/dL (0.70-1.30); EST Glomerular Filtration Rate 83 mL/min (>60); Est Glom Filt Rate - Afr Amer 101 mL/min (>60); Globulin 3.6 g/dL (2.2-4.2); Glucose 114 mg/dL (74-106); High Density Lipoprotein 55 mg/dL; PSA,Total - Annual Screen 1.39 ng/mL (0.00-4.00); Potassium 4.2 mmol/L (3.5-5.1); Protein, Total 7.2 g/dL (6.4-8.2); Sodium Level 136 mmol/L (136-145); Triglycerides 215 mg/dL; Very Low Density Lipoprotein 43 mg/dL (5-40)
[2021-02-04 12:30] LABS: Hepatitis C Antibody Non-Reactive (Nonreactive)
== END ==
PROVIDERS: PCP Family Medicine; Referring Provider Family Medicine; Visit Provider Family Medicine
DX: I65.23 Occlusion and stenosis of bilateral carotid arteries (principal); I77.9 Disorder of arteries and arterioles, unspecified; R73.03 Prediabetes; R53.83 Other fatigue; Z12.5 Encounter for screening for malignant neoplasm of prostate
CPT/HCPCS: 36415; 80053; 80061; 83036; 84153; 85025; 86803; 93880; G0103

== ENCOUNTER → 2022-09-11 | Outpatient (CLI) | payer MEDICARE, SELFPAY ==
[2022-09-11 15:16] LABS: Absolute Lymphocyte Count 2.76 X10^3/uL (0.83-4.51); Absolute Neutrophil Count 5.2 X10^3/uL (2.0-7.7); Basophil# 0.05 X10^3/uL; Basophil% 0.5 % (0-1); Eosinophil# 0.33 X10^3/uL; Eosinophils% 3.5 % (0-5); Hematocrit 45.7 % (40-54); Lymphocyte # 2.76 X10^3/ul (0.83-4.51); Lymphocyte % 29.5 % (19-41); Mean Corp Hgb Conc 32.8 g/dL (32-36); Mean Corpuscular Hgb 29.4 pg (27.0-32.0); Mean Corpuscular Volume 89.6 fL (80-94); Mean Platelet Vol. 10.2 fl (6.2-12.0); Monocyte# 1.01 X10^3/uL; Monocyte% 10.8 % (0-10); NRBC Flagged by Analyzer 0 % (0-5); Neutrophil # 5.19 X10^3/uL (2.7-7.7); Neutrophil % 55.4 % (47-70); Platelet Count 324 K/mm3 (150-450); RBC Distribution Width CV 12.1 % (11.6-14.6); White Blood Count 9.4 K/mm3 (4.4-11.0)
[2022-09-11 15:56] LABS: ALB/GLOB Ratio 1.2 RATIO (0.9-2.4); AST(SGOT) 21 U/L (15-37); Alanine Aminotransfer ALT/SGPT 29 U/L (16-61); Albumin, Serum 3.8 g/dL (3.2-5.0); Alkaline Phosphatase 77 U/L (45-117); Anion Gap 6 (5-15); BUN 17 mg/dL (7-18); BUN/Creat Ratio 18.7 RATIO (10-20); Chloride 104 mmol/L (98-107); Cholesterol 216 mg/dL (200); Creatinine, Serum 0.91 mg/dL (0.70-1.30); EST Glomerular Filtration Rate 87 mL/min (>60); Est Glom Filt Rate - Afr Amer 106 mL/min (>60); Globulin 3.3 g/dL (2.2-4.2); Glucose 102 mg/dL (74-106); High Density Lipoprotein 53 mg/dL; PSA,Total - Annual Screen 1.59 ng/mL (0.00-4.00); Potassium 4.4 mmol/L (3.5-5.1); Protein, Total 7.1 g/dL (6.4-8.2); Sodium Level 135 mmol/L (136-145); Triglycerides 170 mg/dL; Very Low Density Lipoprotein 34 mg/dL (5-40)
== END | disposition home or self-care (01) ==
LOC: BFHLAB 13:50
PROVIDERS: PCP Family Medicine; Visit Provider Family Medicine
DX: R73.03 Prediabetes (principal); I65.23 Occlusion and stenosis of bilateral carotid arteries; Z12.5 Encounter for screening for malignant neoplasm of prostate; H92.02 Otalgia, left ear
CPT/HCPCS: 36415; 80053; 80061; 84153; 85025; G0103

== ENCOUNTER → 2022-09-14 | Outpatient (CLI) | payer MEDICARE, SELFPAY ==
--- NOTE | 2022-09-14 12:56 | CDU_ITS ---
Reason For Study: atherosclerosis Rt. Velocities/BP Lt. Velocities/BP Prox CCA 65.5/14.5 cm/sec. Prox CCA 90.5/25.6 cm/sec. Mid CCA 72.1/21.1 cm/sec. Mid CCA 93.8/28.9 cm/sec. Dist CCA 73.0/23.0 cm/sec. Dist CCA 99.2/28.9 cm/sec. Prox ICA 85.0/20.1 cm/sec. Prox ICA 174.1/73.1 cm/sec. Mid ICA 55.3/15.7 cm/sec. Mid ICA 152.1/55.5 cm/sec. Dist ICA 70.7/26.7 cm/sec. Dist ICA 65.2/26.7 cm/sec. Rt. ICA/CCA = 1.2. Lt. ICA/CCA = 1.9. Prox ECA 86.1/15.7 cm/sec. Prox ECA 92.5/17.6 cm/sec. Rt. Vert. 53.1/19.0 cm/sec. Lt. Vert. 64.1/21.2 cm/sec. Right Extracranial There is homogeneous, smooth atherosclerotic plaque noted in the right common carotid artery. There is heterogeneous, smooth atherosclerotic plaque noted in the right internal carotid artery. There is intimal thickening but no significant atherosclerotic plaque noted in the right external carotid artery. Antegrade flow is noted in the right vertebral artery. Left Extracranial There is homogeneous, smooth atherosclerotic plaque noted in the left common carotid artery. There is heterogeneous, smooth atherosclerotic plaque noted in the left internal carotid artery. There is intimal thickening but no significant atherosclerotic plaque noted in the left external carotid artery. Antegrade flow is noted in the left vertebral artery. Procedure Carotid Duplex 72800. This is a Carotid Duplex examination using B-mode, color flow and specral Doppler. The exam was diagnostic. Exam performed in department. VL/Carotid Duplex Ultrasound Interpretation Summary Mild (<50%) stenosis right extracranial internal carotid. Moderate (50-69%) stenosis left extracranial internal carotid. Patent and antegrade vertebrals bilaterally. Ordering Physician: Carrillo Najera Performed By: Willie Millard RVT
== END | disposition home or self-care (01) ==
LOC: CVS 12:55
PROVIDERS: PCP Family Medicine; Referring Provider Family Medicine; Visit Provider Family Medicine
DX: I65.23 Occlusion and stenosis of bilateral carotid arteries (principal)
CPT/HCPCS: 93880

== ENCOUNTER → 2022-11-02 | Outpatient (CLI) | payer MEDICARE, SELFPAY ==
--- NOTE | 2022-11-02 13:30 | TISS_PTH ---
PATIENT: DESTINY BALDERAS LOC: [facility] U#:[id number] AGE/SX: 72/M ROOM: RE11/02/[address]: Dr. Carrillo Najera, : 1950 BED: DIS: 11/02/2022 SPEC #: [id number] RECD: 11/02/22 17:51 STATUS: KATERIN IVA #: [id number] TRAN: 11/02/22 13:[address]: Carrillo Najera DEPT: SURGICAL PATHOLOGY RECD BY: Shante Fields Tissues: Skin of back, NOS Procedures: Surgery Specimen Level IV HEADER OPERATION: Punch biopsy left back PRE-OP DIAGNOSIS: Back mole, rule out melanoma TISSUE SUBMITTED: 4 mm punch biopsy left back MICROSCOPIC DIAGNOSIS Skin lesion of back, punch biopsy: Pigmented seborrheic keratosis. Mild solar elastosis. Focal actinic change. AM:venkat 11/06/2022 MICROSCOPIC DESCRIPTION Slides are reviewed. GROSS DESCRIPTION Received in fixative is one container labeled with the patient's name and designated left back. The specimen consists of a light umanzor shave biopsy of skin measuring 0.5 cm in diameter and <0.1 cm in thickness. The specimen is submitted in its entirety in one cassette. / AM:venkat 11/03/22 TC:5 CPT: 57187
== END | disposition home or self-care (01) ==
LOC: LABSPEC 15:02
PROVIDERS: PCP Family Medicine; Visit Provider Family Medicine
DX: L57.8 Other skin changes due to chronic exposure to nonionizing radiation (principal)
CPT/HCPCS: 88305

== ENCOUNTER → 2023-02-08 | Outpatient (CLI) | payer MEDICARE, SELFPAY ==
--- NOTE | 2023-02-08 09:51 | EKG12_ITS ---
Test Reason : PRE OP Blood Pressure : / mmHG Vent. Rate : 064 BPM Atrial Rate : 064 BPM P-R Int : 188 ms QRS Dur : 094 ms QT Int : 400 ms P-R-T Axes : 048 022 042 degrees QTc Int : 412 ms Normal sinus rhythm Normal ECG Confirmed by RYAN RODRIGUEZ, ANGLE ([id number]), technical writer and editor SONNY PIERCE ([id number]) on 02/12/2023 2:21:29 PM Referred By: Diomedes Hand Confirmed By:LAKESHA DAVIS MD
[2023-02-08 10:31] LABS: Hematocrit 46.1 % (40-54); Mean Corp Hgb Conc 32.5 g/dL (32-36); Mean Corpuscular Hgb 29.6 pg (27.0-32.0); Mean Corpuscular Volume 91.1 fL (80-94); Mean Platelet Vol. 9.6 fl (6.2-12.0); Platelet Count 310 K/mm3 (150-450); RBC Distribution Width CV 12.7 % (11.6-14.6); Red Blood Count 5.06 M/mm3 (4.6-6.2); White Blood Count 7.2 K/mm3 (4.4-11.0)
[2023-02-08 11:09] LABS: Anion Gap 9 (5-15); BUN 22 mg/dL (7-18); BUN/Creat Ratio 24.7 RATIO (10-20); Calcium,Total 9.1 mg/dL (8.5-10.1); Chloride 104 mmol/L (98-107); Creatinine, Serum 0.89 mg/dL (0.70-1.30); EST Glomerular Filtration Rate 89 mL/min (>60); Est Glom Filt Rate - Afr Amer 108 mL/min (>60); Glucose 128 mg/dL (74-106); Potassium 4.3 mmol/L (3.5-5.1); Sodium Level 139 mmol/L (136-145)
== END | disposition home or self-care (01) ==
PROVIDERS: PCP Family Medicine; Referring Provider Otolaryngology; Visit Provider Otolaryngology
DX: Z01.810 Encounter for preprocedural cardiovascular examination (principal)
CPT/HCPCS: 36415; 80048; 85027; 93005

== ENCOUNTER → 2023-06-19 | Outpatient (CLI) | payer MEDICARE, SELFPAY ==
[2023-06-19 12:07] LABS: Color, Urine Yellow (Yellow); Glucose, Dipstick Normal (Normal); Ketone-Dipstick Negative (Negative); Leukocyte Esterase-Dipstick 100 /ul (Negative); Nitrite-Dipstick Negative (Negative); Occult Blood-Urine 25 /ul (Negative); Protein-Dipstick 15 mg/dl (Negative); Specific Gravity, Urine 1.025 (1.002-1.030); Urine Bilirubin Dipstick Negative (Negative); Urine Clarity Sl. Cloudy (Clear); Urine Urobilinogen Normal (Normal)
[2023-06-19 12:40] LABS: Hemoglobin A1c 6.1 % (3.8-5.6)
[2023-06-19 12:42] LABS: Anion Gap 6 (5-15); BUN 19 mg/dL (7-18); BUN/Creat Ratio 18.4 RATIO (10-20); Calcium,Total 9.2 mg/dL (8.5-10.1); Chloride 107 mmol/L (98-107); Creatinine, Serum 1.03 mg/dL (0.70-1.30); EST Glomerular Filtration Rate 75 mL/min (>60); Est Glom Filt Rate - Afr Amer 91 mL/min (>60); Glucose 127 mg/dL (74-106); Potassium 4.3 mmol/L (3.5-5.1); Sodium Level 138 mmol/L (136-145)
== END | disposition home or self-care (01) ==
LOC: BFHLAB 10:44
PROVIDERS: PCP Family Medicine; Referring Provider Family Medicine; Visit Provider Family Medicine
DX: R73.01 Impaired fasting glucose (principal); R35.89 Other polyuria; M54.9 Dorsalgia, unspecified
CPT/HCPCS: 36415; 80048; 81002; 83036

== ENCOUNTER → 2024-09-02 | Outpatient (CLI) | payer MEDICARE, SELFPAY ==
--- NOTE | 2024-09-02 15:02 | CT_ITS ---
STUDY: CT ABDOMEN AND PELVIS WITH CONTRAST REASON FOR EXAM: Male, 74 years old. BILATERAL FLANK PAIN RADIATION DOSAGE (If Supplied By Facility): CTDIvol = ( 16.62 ) mGy, DLP = ( 1113.78 ) mGycm TECHNIQUE: Transaxial images were obtained from the dome of the diaphragm to the symphysis pubis without oral contrast. Oral and amp; IV Readi-CAT and amp; 100mL Isovue-300 was administered. Sagittal and coronal images were reconstructed. Individualized dose optimization techniques were used for this CT. COMPARISON: None. FINDINGS: The visualized lung bases are unremarkable. The visualized portions of the heart are within normal limits. 3 cm cyst in the liver. Normal gallbladder and extrahepatic biliary system. Normal spleen. Normal pancreas. Normal bilateral adrenal glands. Bilateral renal cysts. Normal visualized stomach. Normal small intestine. Mild diverticulosis of the rmal colon. The appendix is visualized and appears normal. Normal abdominal aorta. Normal inferior vena cava. Normal retroperitoneum. Normal urinary bladder. Mild hydrocele. Normal abdominal wall. Degenerative vertebral changes. CT/Abdomen/Pelvis WITH Contrast IMPRESSION: Hepatic and renal cysts. Diverticulosis of the colon. Mild hydrocele. Electronically Signed: Garfield Fry DO at 10:45 RUST ,
[2024-09-02 15:52] LABS: CREATININE FINGERSTICK < 1.0 mg/dL (0.70-1.30); EGFR FINGERSTICK > 60.0000 mL/min (>60)
== END | disposition home or self-care (01) ==
LOC: CT 14:59
PROVIDERS: PCP Family Medicine; Referring Provider Family Medicine; Visit Provider Family Medicine
DX: R10.31 Right lower quadrant pain (principal)
CPT/HCPCS: 74177; Q9967

== ENCOUNTER → 2024-11-06 | Outpatient (CLI) | payer MEDICARE, SELFPAY ==
--- NOTE | 2024-11-06 09:50 | EKG12_ITS ---
Test Reason : PRE OP Blood Pressure : */* mmHG Vent. Rate : 60 BPM Atrial Rate : 60 BPM P-R Int : 176 ms QRS Dur : 90 ms QT Int : 404 ms P-R-T Axes : 44 19 45 degrees QTcB Int : 404 ms Normal sinus rhythm Normal ECG Confirmed by RYAN RODRIGUEZ, ANGLE ([id number]), map editor YOHAN DILLON ([id number]) on 11/06/2024 1:14:01 PM Referred By: Jacob Plasencia Confirmed By: ANGLE DAVIS MD
[2024-11-06 10:31] LABS: Absolute Lymphocyte Count 2.18 X10^3/uL (0.83-4.51); Absolute Neutrophil Count 3.8 X10^3/uL (2.0-7.7); Basophil# 0.04 X10^3/uL; Basophil% 0.6 % (0-1); Eosinophil# 0.25 X10^3/uL; Eosinophils% 3.7 % (0-5); Hematocrit 44.3 % (40-54); Hemoglobin 14.9 g/dL (13.0-16.5); Lymphocyte # 2.18 X10^3/ul (0.83-4.51); Lymphocyte % 31.9 % (19-41); Mean Corp Hgb Conc 33.6 g/dL (32-36); Mean Corpuscular Hgb 29.7 pg (27.0-32.0); Mean Corpuscular Volume 88.2 fL (80-94); Mean Platelet Vol. 9.5 fl (6.2-12.0); Monocyte# 0.57 X10^3/uL; Monocyte% 8.3 % (0-10); NRBC Flagged by Analyzer 0 % (0-5); Neutrophil # 3.78 X10^3/uL (2.7-7.7); Neutrophil % 55.2 % (47-70); Platelet Count 335 K/mm3 (150-450); RBC Distribution Width CV 12.4 % (11.6-14.6); RBC Distribution Width SD 39.8 fl (35.1-43.9); Red Blood Count 5.02 M/mm3 (4.6-6.2); White Blood Count 6.8 K/mm3 (4.4-11.0)
[2024-11-06 10:59] LABS: Albumin, Serum 3.6 g/dL (3.2-5.0); Anion Gap 5 (5-15); BUN 18 mg/dL (7-18); Calcium,Total 9.3 mg/dL (8.5-10.1); Chloride 106 mmol/L (98-107); Creatinine, Serum 0.86 mg/dL (0.70-1.30); EST Glomerular Filtration Rate 93 mL/min (>60); Est Glom Filt Rate - Afr Amer 112 mL/min (>60); Glucose 132 mg/dL (74-106); Potassium 4.3 mmol/L (3.5-5.1); Sodium Level 137 mmol/L (136-145)
== END | disposition home or self-care (01) ==
LOC: PSN 09:47
PROVIDERS: PCP Family Medicine; Referring Provider Specialist; Visit Provider Specialist
DX: Z01.810 Encounter for preprocedural cardiovascular examination (principal); M16.11 Unilateral primary osteoarthritis, right hip
CPT/HCPCS: 36415; 80048; 82040; 85025; 93005

== ENCOUNTER → 2025-02-25 | Outpatient (CLI) | payer MEDICARE, SELFPAY ==
[2025-02-25 15:48] LABS: Absolute Lymphocyte Count 1.71 X10^3/uL (0.83-4.51); Absolute Neutrophil Count 2.1 X10^3/uL (2.0-7.7); Basophil# 0.02 X10^3/uL; Basophil% 0.4 % (0-1); Eosinophil# 0.09 X10^3/uL; Eosinophils% 1.9 % (0-5); Hemoglobin 15.7 g/dL (13.0-16.5); Lymphocyte # 1.71 X10^3/ul (0.83-4.51); Lymphocyte % 35.8 % (19-41); Mean Corp Hgb Conc 32.7 g/dL (32-36); Mean Corpuscular Hgb 29.6 pg (27.0-32.0); Mean Corpuscular Volume 90.4 fL (80-94); Mean Platelet Vol. 10.2 fl (6.2-12.0); Monocyte# 0.85 X10^3/uL; Monocyte% 17.8 % (0-10); NRBC Flagged by Analyzer 0 % (0-5); Neutrophil # 2.09 X10^3/uL (2.7-7.7); Neutrophil % 43.9 % (47-70); Platelet Count 272 K/mm3 (150-450); RBC Distribution Width CV 12.9 % (11.6-14.6); RBC Distribution Width SD 42.5 fl (35.1-43.9); Red Blood Count 5.31 M/mm3 (4.6-6.2); White Blood Count 4.8 K/mm3 (4.4-11.0)
[2025-02-26 11:22] LABS: ALB/GLOB Ratio 1.6 RATIO (0.9-2.4); AST(SGOT) 41 U/L (<=37); Alanine Aminotransfer ALT/SGPT 40 U/L (<=46); Albumin, Serum 4.3 g/dL (3.4-4.8); Alkaline Phosphatase 95 U/L (40-129); Anion Gap 10 (5-15); BUN 16 mg/dL (4-19); BUN/Creat Ratio 15.5 RATIO (10-20); Calcium,Total 8.7 mg/dL (7.6-11.0); Carbon Dioxide 25.9 mmol/L (21.0-32.0); Chloride 101 mmol/L (98-108); Creatinine, Serum 1.04 mg/dL (0.70-1.20); EST Glomerular Filtration Rate 75 (>60); Ferritin 270 ng/mL (37-417); Globulin 2.7 g/dL (2.2-4.2); Glucose 98 mg/dL (70-99); PSA,Total - Annual Screen 1.89 ng/mL (0.02-4.00); Potassium 4.9 mmol/L (3.3-5.1); Sodium Level 136 mmol/L (133-145); Thyroid Stim Hormone (TSH) 0.464 uIU/mL (0.300-4.200); Vitamin B12 599 pg/mL (180-914)
[2025-02-26 13:21] LABS: Iron 54 ug/dL (65-175)
== END | disposition home or self-care (01) ==
PROVIDERS: PCP Family Medicine; Referring Provider Nurse Practitioner Family; Visit Provider Nurse Practitioner Family
DX: N39.0 Urinary tract infection, site not specified (principal); R53.83 Other fatigue; I10 Essential (primary) hypertension; Z12.5 Encounter for screening for malignant neoplasm of prostate
CPT/HCPCS: 36415; 80053; 82306; 82607; 82728; 83540; 84153; 84439; 84443; 85025; 87086; 87088; G0103

== ENCOUNTER → 2025-03-05 | Outpatient (CLI) | payer MEDICARE, SELFPAY ==
--- NOTE | 2025-03-05 07:48 | US_ITS ---
PROCEDURE: ABDOMEN LIMITED 03/05/2025 REASON FOR EXAM: TERI UPPER ABD PAIN ASSESS FOR ABNORMALITIES COMPARISON: Prior CT scan of the abdomen and pelvis dated September 02, 2024. TECHNIQUE: Complete abdominal ultrasound jordan-scale images with color doppler. FINDINGS: Liver: Diffusely echogenic suggesting fatty infiltration. 2.6 cm 3 cm 3.2 cm cyst in the dome of the right lobe of the liver. Gallbladder: No stones, sludge, wall thickening or tenderness. Common bile duct: Normal measuring 5 mm. . Pancreas: Obscured by bowel gas. Kidneys: The right kidney measures 10.7 cm 5.1 cm 6.7 cm. The renal cortex measures 1.9 cm. There is evidence of a 2.8 cm 2.7 cm x 3 cm renal cyst.. Spleen: Normal in size and echotexture measuring the spleen measures 9.9 cm 3.9 cm 4.3 cm. . US/Abdomen Limited IMPRESSION: Fatty infiltration of the liver. 2.6 cm 3 cm 3.2 cm cyst in the dome of the ri ght lobe of the liver. Right renal cyst. Reading Location: [id number]
== END | disposition home or self-care (01) ==
LOC: US 07:44
PROVIDERS: PCP Family Medicine; Referring Provider Nurse Practitioner Family; Visit Provider Nurse Practitioner Family
DX: R10.11 Right upper quadrant pain (principal); R10.12 Left upper quadrant pain
CPT/HCPCS: 76705

== ENCOUNTER → 2025-08-14 | Outpatient (CLI) | payer MEDICARE, SELFPAY ==
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
== END | disposition home or self-care (01) ==
LOC: MTRAD 12:40
PROVIDERS: PCP Family Medicine; Referring Provider Family Medicine; Visit Provider Family Medicine
DX: M25.562 Pain in left knee (principal)
CPT/HCPCS: 73564